=== PATIENT | male | born 1940 | race Hispanic/Latino ===

== ENCOUNTER 2018-05-01 13:50 | Emergency (ER) | payer OTHER ==
--- NOTE | 2018-05-01 14:43 | RAD REPORT ---
EXAM DESCRIPTION: CT - Head C Spine Mpr Wo Con - 05/01/2018 2:25 pm CLINICAL HISTORY: Head and neck injury status post fall. Head and neck pain. Dizziness. COMPARISON: None. TECHNIQUE: Computed axial tomography of the head and cervical spine was obtained. Sagittal and coronal reconstruction was performed. All CT scans are performed using dose optimization technique as appropriate and may include automated exposure control or mA/KV adjustment according to patient size. FINDINGS: An intracranial bleed is not seen. The ventricles are normal in caliber. An extra-axial fl uid collection is not noted. 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 No dislocation is noted. 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 A cervical fracture is not visualized. If the patient continues to have symptoms to suggest intracra nial /spinal cord pathology then MRI would be recommended
--- NOTE | 2018-05-01 15:08 | RAD REPORT ---
EXAM DESCRIPTION: RAD - Foot Left 3 View - 05/01/2018 2:53 pm CLINICAL HISTORY: Left Foot pain status post fall FINDINGS: A mildly displaced fracture involves the proximal to mid aspect of the first distal phalan x. No dislocation is seen
--- NOTE | 2018-05-01 15:22 | RAD REPORT ---
EXAM DESCRIPTION: RAD - Hip Left 2 View - 05/01/2018 2:53 pm CLINICAL HISTORY: Left hip pain status post injury FINDINGS: No fracture or dislocation is seen. The bones are osteoporotic. If the patient continues have symptoms to suggest an occult fracture then MRI would be recommended
[2018-05-01 15:26] LABS: Absolute Lymphocytes (CBC) 1.3 K/uL (0.7-4.9); Absolute Monocytes 0.7 K/uL (0.1-1.3); Absolute Neutrophil 5.4 K/uL (1.8-8.0); Basophils % 0.7 % (0-1.3); Eosinophils % 1.5 % (0-4.4); Hematocrit 36.1 % (39.6-49.0); Lymphocytes % 16.8 % (15.3-44.8); MCH 29.6 pg (27.0-35.0); Monocytes % 9.2 % (3.3-12.3); RBC Red Blood Cell Count 4.01 M/uL (4.33-5.43)
[2018-05-01 15:42] LABS: BUN Blood Urea Nitrogen 17 mg/dL (7-18); Bicarbonate 26 mmol/L (21-32); Glucose Level 97 mg/dL (74-106); Sodium Level 140 mmol/L (136-145)
[2018-05-01] MEDS ORDERED: ONDANSETRON 4 MG/2 ML VIAL ONE (15:53)
[2018-05-01] MEDS ORDERED: HYDROCODONE/APAP 7.5/325 MG TAB ONE (15:53)
[2018-05-01] MEDS ORDERED: NA CHLORIDE 0.9% 1,000 ML ONE (15:53)
[2018-05-01 16:35] LABS: Urine Blood NEGATIVE (NEG); Urine Glucose NEGATIVE (NEG); Urine Protein NEGATIVE (NEG); Urine pH 5.5 (5.0-7.0)
--- NOTE | 2018-05-01 16:52 | EDPHYS ---
Physician Documentation [facility] Name: Perry Osorio Age: 78 yrs Sex: Male : 1940 Arrival Date: 05/01/2018 Time: 13:54 Bed 24 Private MD: out of town, doctor ED Physician Atif Smith HPI: 05/01 14:04 This 78 yrs old Male presents to ER via Wheelchair with complaints of Fall kav Injury. 14:15 Details of fall: The patient fell from an upright position, while walking. Onset: The kav symptoms/episode began/occurred acutely, last night. Associated injuries: The patient sustained injury to the head, neck injury, decreased range of motion, pain, pain with movement, left hip, painful injury, left quadriceps, painful injury. Historical: - Allergies: 14:00 Sulfa (Sulfonamide Antibiotics); lk1 14:00 Ketamine; lk1 - PMHx: 14:00 High Cholesterol; Hypertension; Diabetes - NIDDM; Myocardial infarction; lk1 - PSHx: 14:00 Appendectomy; Cholecystectomy; CABG; lk1 - Immunization history: Last tetanus immunization: - up to date. - Social history:: Smoking status: Patient uses tobacco products, smokes one-half pack cigarettes per day. - Ebola Screening: : No symptoms or risks identified at this time. - Family history:: not pertinent. - Hospitalizations: : No recent hospitalization is reported. - History obtained from: , daughter. ROS: 14:15 Constitutional: Negative for fever, chills, and weight loss, Eyes: Negative for injury, kav pain, redness, and discharge, ENT: Negative for injury, pain, and discharge, Neck: Negative for injury, pain, and swelling, Cardiovascular: Negative for chest pain, palpitations, and edema, Respiratory: Negative for shortness of breath, cough, wheezing, and pleuritic chest pain, Abdomen/GI: Negative for abdominal pain, nausea, vomiting, diarrhea, and constipation, Back: Negative for injury and pain, : Negative for injury, bleeding, discharge, and swelling, Skin: Negative for injury, rash, and discoloration, Psych: Negative for depression, anxiety, suicide ideation, homicidal ideation, and hallucinations, Allergy/Immunology: Negative for hives, rash, and allergies, Endocrine: Negative for neck swelling, polydipsia, polyuria, polyphagia, and marked weight changes, Hematologic/Lymphatic: Negative for swollen nodes, abnormal bleeding, and unusual bruising. 14:15 MS/extremity: Positive for pain, tenderness, of the pelvis and left hip, left femur. 14:15 Neuro: Positive for dizziness, headache, loss of consciousness. Exam: 14:15 Constitutional: This is a well developed, well nourished patient who is awake, alert, kav and in no acute distress. Eyes: Pupils equal round and reactive to light, extra-ocular motions intact. Lids and lashes normal. Conjunctiva and sclera are non-icteric and not injected. Cornea within normal limits. Periorbital areas with no swelling, redness, or edema. ENT: Nares patent. No nasal discharge, no septal abnormalities noted. Tympanic membranes are normal and external auditory canals are clear. Oropharynx with no redness, swelling, or masses, exudates, or evidence of obstruction, uvula midline. Mucous membranes moist. Neck: Trachea midline, no thyromegaly or masses palpated, and no cervical lymphadenopathy. Supple, full range of motion without nuchal rigidity, or vertebral point tenderness. No Meningismus. Chest/axilla: Normal chest wall appearance and motion. Nontender with no deformity. No lesions are appreciated. Cardiovascular: Regular rate and rhythm with a normal S1 and S2. No gallops, murmurs, or rubs. Normal PMI, no JVD. No pulse deficits. Respiratory: Lungs have equal breath sounds bilaterally, clear to auscultation and percussion. No rales, rhonchi or wheezes noted. No increased work of breathing, no retractions or nasal flaring. Abdomen/GI: Soft, non-tender, with normal bowel sounds. No distension or tympany. No guarding or rebound. No evidence of tenderness throughout. Back: No spinal tenderness. No costovertebral tenderness. Full range of motion. Skin: Warm, dry with normal turgor. Normal color with no rashes, no lesions, and no evidence of cellulitis. Neuro: Awake and alert, GCS 15, oriented to person, place, time, and situation. Cranial nerves II-XII grossly intact. Motor strength 5/5 in all extremities. Sensory grossly intact. Cerebellar exam normal. Normal gait. Psych: Awake, alert, with orientation to person, place and time. Behavior, mood, and affect are within normal limits. 14:15 Musculoskeletal/extremity: Extremities: grossly normal except: noted in the left hip: pain, noted in the left quadriceps: pain, ROM: limited active range of motion, in the left quadriceps and pelvis, limited passive range of motion, in the left hip. 14:15 Neuro: Exam negative for acute changes, focal neuro deficits, motor deficits, sensory deficits, cerebellar deficits, altered mental status, confusion, cranial nerve deficits, disorientation. Vital Signs: 14:01 BP 96 / 59; Pulse 93; Resp 15; Temp 97.0(TE); Pulse Ox 95% ; Weight 74.84 kg (R); lk1 Height 5 ft. 9 in. (175.26 cm) (R); Pain 6/10; 14:50 BP 120 / 62; Pulse 88; Resp 18; Pulse Ox 99% ; tl3 17:39 BP 131 / 73; Pulse 66; Resp 18; Pulse Ox 100% ; tl3 14:01 Body Mass Index 24.37 (74.84 kg, 175.26 cm) lk1 NIH Stroke Scale Scores: 14:21 NIHSS Score: 0 kav Marsha Coma Score: 14:01 Eye Response: spontaneous(4). Verbal Response: oriented(5). Motor Response: obeys lk1 commands(6). Total: 15. 14:21 Eye Response: spontaneous(4). Verbal Response: oriented(5). Motor Response: obeys kav commands(6). Total: 15. Trauma Score (Adult): 14:01 Eye Response: spontaneous(1); Verbal Response: oriented(1); Motor Response: obeys lk1 commands(2); Systolic BP: > 89 mm Hg(4); Respiratory Rate: 10 to 29 per min(4); Marsha Score: 15; Trauma Score: 12 14:21 Eye Response: spontaneous(1); Verbal Response: oriented(1); Motor Response: obeys kav commands(2); Systolic BP: > 89 mm Hg(4); Respiratory Rate: 10 to 29 per min(4); [place] Score: 15; Trauma Score: 12 MDM: 14:12 Medical screening is not applicable. kav 16:52 Data reviewed: vital signs, nurses notes, lab test result(s), EKG, radiologic studies, kav CT scan, plain films. 05/01 14:14 Order name: Basic Metabolic Panel; Complete Time: 15:47 [facility] 05/01 15:47 Interpretation: Within normal limits. 05/01 14:14 Order name: CBC with Diff; Complete Time: 15:33 [facility] 05/01 15:33 Interpretation: Normal except: RBC 4.01; HGB 11.9; HCT 36.1. [facility] 05/01 14:14 Order name: CT Head C Spine; Complete Time: 15:20 [facility] 05/01 14:14 Order name: Creatinine for Radiology; Complete Time: 15:47 05/01 14:14 Order name: Type And Screen; Complete Time: 16:50 [facility] 05/01 16:04 Order name: Urine Dipstick--Ancillary (enter results); Complete Time: 16:50 05/01 16:50 Interpretation: Within normal limits. [facility] 05/01 14:14 Order name: Labs collected and sent; Complete Time: 15:19 [facility] 05/01 14:14 Order name: Urine Dipstick-Ancillary (obtain specimen); Complete Time: 15:49 05/01 14:14 Order name: Hip Left 2 View XRAY; Complete Time: 15:33 [facility] 05/01 14:29 Order name: Foot Left 3 View XRAY; Complete Time: 15:16 05/01 15:19 Interpretation: Abnormal: Mildly displaced fx first distal phalanx. kav Administered Medications: 16:01 Drug: Zofran 4 mg Route: IVP; Site: right antecubital; tl3 17:40 Follow up: Response: No adverse reaction tl3 16:01 Drug: [place] (7.5 mg-325 mg) 1 tabs Route: PO; tl3 17:40 Follow up: Response: No adverse reaction; Pain is decreased tl3 16:02 Drug: NS 0.9% 1000 ml Route: IV; Rate: 1000 ml; Site: right antecubital; Delivery: tl3 Primary tubing; 17:40 Follow up: IV Status: Completed infusion; IV Intake: 1000ml tl3 Disposition: 05/01/18 16:50 Discharged to Home. Impression: Displaced fracture of distal phalanx of left great toe, Hypotension due to drugs, Prescription Medication Interaction (Merbytric \T\ Metoprolol) Causing Hypotension. - Condition is Stable. - Discharge Instructions: Toe Fracture, [id number], Syncope, [id number], Hypotension, [id number]. - Medication Reconciliation Form, Thank You Letter, Antibiotic Education, Prescription Opioid Use form. - Follow up: Private Physician; When: 7 - 10 days; Reason: Recheck today's complaints, Continuance of care, Re-evaluation by your physician. - Problem is new. - Symptoms have improved. - Notes: Do not take Metoprolol and Myrbetriq together. The combination of these two medications my increase metoprolol levels risk of hypotension, bradycardia, AV block Please discuss the combinatio of these medications with your PCP and Urologist NIH Stroke Scale - NIH Stroke Score Date: 05/01/2018 Time: 14:21 Total Score = 0 1a. Level of Consciousness (LOC) - 0(Alert) 1b. Level of Consciousness (LOC) (Year \T\ Age) - 0(Both) 1c. LOC Commands (Open \T\ Closes Eyes/Bonding Machine Operator) - 0(Both) 2. Best Gaze (Lateral Gaze Paresis) - 0(Normal) 3. Visual Field Loss - 0(No visual loss) 4. Facial Palsy - 0(Normal) 5a. Left Arm: Motor (10-second hold) - 0(No drift) 5b. Right Arm: Motor (10-second hold) - 0(No drift) 6a. Left Leg: Motor (5-second hold - always test supine) - 0(No drift) 6b. Right Leg: Motor (5-second hold - always test supine) - 0(No drift) 7. Limb Ataxia (finger/nose \T\ heel/hollins - test with eyes open) - 0(Absent) 8. Sensory Loss (pinprick arms/legs/face) - 0(Normal) 9. Best Language: Aphasia (description/naming/reading) - 0(No aphasia) 10. Dysarthria (speech clarity - read or repeat words) - 0(Normal) 11. Extinction and Inattention (visual/tactile/auditory/spatial/personal) - 0(No abnormality) Initials: sai Addendum: 05/08/2018 11:26 Co-signature as Attending Physician, Atif Smith MD I agree with the kdr assessment and plan of care. Signatures: Dispatcher [employer] EDUT Atif Smith MD MD kdr Juarez, Starr, HOTEL SUPERINTENDENT HOTEL SUPERINTENDENT ka Estelita Khan, RN RN lk1 Kenia Pierson, RN RN tl3 Corrections: (The following items were deleted from the chart) 05/01 15:20 15:20 No acute disease. kav kav 15:34 15:33 No acute disease. kav kav 16:01 15:47 Within normal limits. kav kav 16:50 16:50 Within normal limits. kav kav 17:42 16:50 05/01/2018 16:50 Discharged to Home. Impression: Displaced fracture of tl3 distal phalanx of left great toe; Hypotension due to drugs; Prescription Medication Interaction (Merbytric \T\ Metoprolol) Causing Hypotension. Condition is Stable. Discharge Instructions: Toe Fracture, Usxp-oa-[id number], Syncope, Hvvd-zk-[id number], Hypotension, Miml-ma-Dune. Forms are Medication Reconciliation Form, Thank You Letter, Antibiotic Education, Prescription Opioid Use. Follow up: Private Physician; When: 7 - 10 days; Reason: Recheck today's complaints, Continuance of care, Re-evaluation by your physician. Problem is new. Symptoms have improved. kav
--- NOTE | 2018-05-01 16:52 | ER ---
Nurse's Notes [facility] Name: Perry Osorio Age: 78 yrs Sex: Male : 1940 Arrival Date: 05/01/2018 Time: 13:54 Bed 24 Private MD: out of town, doctor Diagnosis: Displaced fracture of distal phalanx of left great toe;Hypotension due to drugs;Prescription Medication Interaction (Merbytric \\T\\ Metoprolol) Causing Hypotension Presentation: 05/01 13:56 Presenting complaint: Patient states: "I fell down this morning, I don't know how, but lk1 I hit my head and I think I broke my toe on the left foot. I have been getting dizzy.". Care prior to arrival: None. Mechanism of Injury: Fall. Trauma event details: Injury occurred in the [facility], Injury occurred: at home. Injury occurred: May 01, 2018 Injury occurred at: 08:00. 13:56 Acuity: MARCELO 3 lk1 13:56 Method Of Arrival: Wheelchair lk1 17:41 Transition of care: patient was not received from another setting of care. Onset of tl3 symptoms was May 01, 2018 at 03:00. Risk Assessment: Do you want to hurt yourself or someone else? Patient reports no desire to harm self or others. Initial Sepsis Screen: Does the patient meet any 2 criteria? No. Patient's initial sepsis screen is negative. Does the patient have a suspected source of infection? No. Patient's initial sepsis screen is negative. Trauma Activation: Not Applicable Physician: ED Physician; Name: ; Notified At: ; Arrived At: Physician: General Surgeon; Name: ; Notified At: ; Arrived At: Physician: Radiology; Name: ; Notified At: ; Arrived At: Physician: Respiratory; Name: ; Notified At: ; Arrived At: Physician: Lab; Name: ; Notified At: ; Arrived At: Historical: - Allergies: 14:00 Sulfa (Sulfonamide Antibiotics); lk1 14:00 Ketamine; lk1 - PMHx: 14:00 High Cholesterol; Hypertension; Diabetes - NIDDM; Myocardial infarction; lk1 - PSHx: 14:00 Appendectomy; Cholecystectomy; CABG; lk1 - Immunization history: Last tetanus immunization: - up to date. - Social history:: Smoking status: Patient uses tobacco products, smokes one-half pack cigarettes per day. - Ebola Screening: : No symptoms or risks identified at this time. - Family history:: not pertinent. - Hospitalizations: : No recent hospitalization is reported. - History obtained from: , daughter. Screenin:50 Abuse screen: Denies threats or abuse. Nutritional screening: No deficits noted. tl3 Tuberculosis screening: No symptoms or risk factors identified. Fall Risk Fall in past 12 months (25 points). Primary Survey: 14:00 A: Airway: patent. Breathing/Chest: Respiratory pattern: regular, Respiratory effort: lk1 spontaneous, Chest inspection: symmetrical rise and fall of the chest. Circulation: Heart tones present. Pulses: palpable right brachial artery, right dorsalis pedis artery, left brachial artery and left dorsalis pedis artery. Disability Alert. Assessment: 14:50 General: Appears in no apparent distress. comfortable, slender, well groomed, well tl3 developed, Behavior is calm, cooperative, appropriate for age. Pain: Complains of pain in left leg and left quadriceps and pelvis and left hip and left dorsalis pedis artery and left brachial artery and right dorsalis pedis artery and right brachial artery. 15:30 Reassessment: Patient appears in no apparent distress at this time. No changes from tl3 previously documented assessment. Patient and/or family updated on plan of care and expected duration. Pain level reassessed. Patient is alert, oriented x 3, equal unlabored respirations, skin warm/dry/pink. 17:39 Reassessment: Patient appears in no apparent distress at this time. No changes from tl3 previously documented assessment. Patient and/or family updated on plan of care and expected duration. Pain level reassessed. Patient is alert, oriented x 3, equal unlabored respirations, skin warm/dry/pink. Vital Signs: 14:01 BP 96 / 59; Pulse 93; Resp 15; Temp 97.0(TE); Pulse Ox 95% ; Weight 74.84 kg (R); lk1 Height 5 ft. 9 in. (175.26 cm) (R); Pain 6/10; 14:50 BP 120 / 62; Pulse 88; Resp 18; Pulse Ox 99% ; tl3 17:39 BP 131 / 73; Pulse 66; Resp 18; Pulse Ox 100% ; tl3 14:01 Body Mass Index 24.37 (74.84 kg, 175.26 cm) lk1 [place] Coma Score: 14:01 Eye Response: spontaneous(4). Verbal Response: oriented(5). Motor Response: obeys lk1 commands(6). Total: 15. 14:21 Eye Response: spontaneous(4). Verbal Response: oriented(5). Motor Response: obeys kav commands(6). Total: 15. Trauma Score (Adult): 14:01 Eye Response: spontaneous(1); Verbal Response: oriented(1); Motor Response: obeys lk1 commands(2); Systolic BP: > 89 mm Hg(4); Respiratory Rate: 10 to 29 per min(4); Marsha Score: 15; Trauma Score: 12 14:21 Eye Response: spontaneous(1); Verbal Response: oriented(1); Motor Response: obeys kav commands(2); Systolic BP: > 89 mm Hg(4); Respiratory Rate: 10 to 29 per min(4); [place] Score: 15; Trauma Score: 12 NIH Stroke Scale Scores: 14:21 NIHSS Score: 0 kav ED Course: 13:54 Patient arrived in ED. mr 13:55 out of town, doctor is Private Physician. mr 13:59 Triage completed. lk1 14:04 [facility] kav 14:04 Atif Smith MD is Attending Physician. kav 14:04 Arm band placed on right wrist. lk1 14:25 CT Head C Spine In Process Unspecified. EDMS 14:26 CT completed. Patient tolerated procedure well. Patient moved to radiology Patient sj moved back from CT. 14:49 Kenia Pierson, RN is Primary Nurse. tl3 14:50 Patient has correct armband on for positive identification. Bed in low position. Call tl3 light in reach. Side rails up X2. Adult w/ patient. Pulse ox on. NIBP on. 14:50 No provider procedures requiring assistance completed. tl3 14:53 Hip Left 2 View XRAY In Process Unspecified. EDMS 14:53 Foot Left 3 View XRAY In Process Unspecified. EDMS 15:18 Initial lab(s) drawn, by me, sent to lab. T\\T\\S collected, blood band applied to patient. dh3 Inserted saline lock: 22 gauge in right antecubital area, using aseptic technique. Blood collected. 15:49 Urine collected: urinal, clear. dh3 17:39 IV discontinued, intact, bleeding controlled, No redness/swelling at site. Pressure tl3 dressing applied. Administered Medications: 16:01 Drug: Zofran 4 mg Route: IVP; Site: right antecubital; tl3 17:40 Follow up: Response: No adverse reaction tl3 16:01 Drug: [place] (7.5 mg-325 mg) 1 tabs Route: PO; tl3 17:40 Follow up: Response: No adverse reaction; Pain is decreased tl3 16:02 Drug: NS 0.9% 1000 ml Route: IV; Rate: 1000 ml; Site: right antecubital; Delivery: tl3 Primary tubing; 17:40 Follow up: IV Status: Completed infusion; IV Intake: 1000ml tl3 Intake: 14:01 PO: 0ml; Total: 0ml. lk1 17:40 IV: 1000ml; Total: 1000ml. tl3 Output: 14:01 Urine: 0ml; Total: 0ml. lk1 Outcome: 16:50 Discharge ordered by MD. gibbs 17:39 Discharged to home ambulatory. tl3 17:39 Condition: stable 17:39 Discharge instructions given to patient, family, Instructed on discharge instructions, follow up and referral plans. medication usage, Demonstrated understanding of instructions, follow-up care, medications. 17:42 Patient left the ED. tl3 NIH Stroke Scale - NIH Stroke Score Date: 05/01/2018 Time: 14:21 Total Score = 0 1a. Level of Consciousness (LOC) - 0(Alert) 1b. Level of Consciousness (LOC) (Year \\T\\ Age) - 0(Both) 1c. LOC Commands (Open \\T\\ Closes Eyes/Food Aide) - 0(Both) 2. Best Gaze (Lateral Gaze Paresis) - 0(Normal) 3. Visual Field Loss - 0(No visual loss) 4. Facial Palsy - 0(Normal) 5a. Left Arm: Motor (10-second hold) - 0(No drift) 5b. Right Arm: Motor (10-second hold) - 0(No drift) 6a. Left Leg: Motor (5-second hold - always test supine) - 0(No drift) 6b. Right Leg: Motor (5-second hold - always test supine) - 0(No drift) 7. Limb Ataxia (finger/nose \\T\\ heel/hollins - test with eyes open) - 0(Absent) 8. Sensory Loss (pinprick arms/legs/face) - 0(Normal) 9. Best Language: Aphasia (description/naming/reading) - 0(No aphasia) 10. Dysarthria (speech clarity - read or repeat words) - 0(Normal) 11. Extinction and Inattention (visual/tactile/auditory/spatial/personal) - 0(No abnormality) Initials: sai Signatures: Dispatcher [employer] EDMS Starr Pizarro, INSTRUCTIONAL SPECIALIST INSTRUCTIONAL SPECIALIST Dinora Mckeon mr Dean, LandyEstelita Hodges, RN RN lk1 Emilie Hyatt 3 Kenia Pierson, RN RN tl3
== END 2018-05-01 17:42 | disposition home or self-care (01) ==
LOC: ER 13:50
DX: S92.422A Displaced fracture of distal phalanx of left great toe, initial encounter for closed fracture (principal); W18.39XA Other fall on same level, initial encounter; Y93.01 Activity, walking, marching and hiking; Y92.9 Unspecified place or not applicable; I95.2 Hypotension due to drugs; T50.995A Adverse effect of other drugs, medicaments and biological substances, initial encounter; I10 Essential (primary) hypertension; I25.2 Old myocardial infarction; F17.210 Nicotine dependence, cigarettes, uncomplicated; Z95.1 Presence of aortocoronary bypass graft; Z88.2 Allergy status to sulfonamides; Z88.8 Allergy status to other drugs, medicaments and biological substances
CPT/HCPCS: 36415; 70450; 72125; 73502; 73630; 80048; 81003; 85025; 86850; 86900; 86901; 96361; 96374; 99284; J2405; J7030

== ENCOUNTER 2022-12-03 15:33 | Inpatient (IN) | payer OTHER ==
--- OUTSIDE RECORDS SUMMARY | 2022-12-03 15:54 | XMS REPORT | Continuity of Care Document ---
:1940 Author Organization [facility] t Address [address] [place] [address] Care Team Providers Name Role Phone Asked, No Pcp Primary Care Physician Unavailable Mak Luna Attending Clinician Gilbert Murillo Attending Clinician Gilbert Murillo Admitting Clinician Problems Condition Condition Condition Status Onset Resolution Last Treating Co mments Source Name Details Category Date Date Treatment Clinician Date [id number] Bilateral Problem Com mon hand Spirit numbness - [facility] [id number] Primary Problem Commo n osteoarthr Spirit [id number] Dupuytren' Problem C ommon [id number] s Spirit contractur - [facility] e of both [facility] Dysphagia, Dysphagia Problem 2018-08-27 Memoria unspecifie , 04:01:04 l d unspecifie Serafin n d 08/27/2018 [facility] Allergies, Adverse Reactions, Alerts Allergy Allergy Status Severity Reaction(s) Onset Inactive Treating Comm ents Source Name Type Date Date Clinician ketamine ketamine Active Unknown Commo n Spirit - [facility] Sulfona Sulfona Active Unknown Commo n mide mide Spirit (substan (substan - [facility] ce) ce) [facility] Social History Social Habit Start Date Stop Date Quantity Comments Source History of Tobacco [facility] - [facility] Use [facility] Sex Assigned At [birth year] [facility] 00:00:00 00:00:00 Smoking Status Start Date Stop Date Source Tobacco smoking consumption [facility] unknown Never Smoker [facility] Medications Ordered Filled Start Stop Current Ordering Indication Dosage Frequency Signature Comments Components Source Medication Medication Date Date Medication? Clinician (SIG) Name Name Imodium A-D Imodium A-D No Imodium A-D Vitamin B Vitamin B No Vitamin B 10 15 12 guaiFENesin guaiFENesin No guaiFENesi n Melatonin Melatonin No Melatonin Plavix Plavix No Plavix Tylenol Tylenol No Tylenol Timoptic Timoptic No Timoptic Lipitor Lipitor No Lipitor Gabapentin Gabapentin No Gabapentin Protonix Protonix No Protonix Furosemide Furosemide No Furosemide MiraLax MiraLax No MiraLax Potassium Potassium No Potassium Toprol XL Toprol XL No Toprol XL Alfuzosin Alfuzosin No Alfuzosin HCl HCl HCl traZODone traZODone No traZODone HCl HCl HCl Ipratropium Ipratropium No Ipratropiu [place] Levothyroxi Levothyroxi No Levothyrox ne Sodium ne Sodium ine Sodium Vitamin A&D Vitamin A&D No Vitamin A&D metFORMIN metFORMIN No metFORMIN HCl HCl HCl Imodium A-D Imodium A-D No Imodium A-D Vitamin B Vitamin B No Vitamin B 10 15 12 guaiFENesin guaiFENesin No guaiFENesi n Melatonin Melatonin No Melatonin Plavix Plavix No Plavix Tylenol Tylenol No Tylenol Timoptic Timoptic No Timoptic Lipitor Lipitor No Lipitor Gabapentin Gabapentin No Gabapentin Protonix Protonix No Protonix Furosemide Furosemide No Furosemide MiraLax MiraLax No MiraLax Potassium Potassium No Potassium Toprol XL Toprol XL No Toprol XL Alfuzosin Alfuzosin No Alfuzosin HCl HCl HCl traZODone traZODone No traZODone HCl HCl HCl Ipratropium Ipratropium No Ipratropiu [place] Levothyroxi Levothyroxi No Levothyrox ne Sodium ne Sodium ine Sodium Vitamin A&D Vitamin A&D No Vitamin A&D metFORMIN metFORMIN No metFORMIN HCl HCl HCl Imodium A-D Imodium A-D No Imodium A-D Vitamin B Vitamin B No Vitamin B 12 12 12 guaiFENesin guaiFENesin No guaiFENesi n Melatonin Melatonin No Melatonin Plavix Plavix No Plavix Tylenol Tylenol No Tylenol Timoptic Timoptic No Timoptic Lipitor Lipitor No Lipitor Gabapentin Gabapentin No Gabapentin Protonix Protonix No Protonix Furosemide Furosemide No Furosemide MiraLax MiraLax No MiraLax Potassium Potassium No Potassium Toprol XL Toprol XL No Toprol XL Alfuzosin Alfuzosin No Alfuzosin HCl HCl HCl traZODone traZODone No traZODone HCl HCl HCl Ipratropium Ipratropium No Ipratropiu [place] Levothyroxi Levothyroxi No Levothyrox ne Sodium ne Sodium ine Sodium Vitamin A&D Vitamin A&D No Vitamin A&D metFORMIN metFORMIN No metFORMIN HCl HCl HCl Vital Signs Vital Name Observation Time Observation Value Comments Source height 2022-08-08 10:30:00 69 [in_i] [facility] weight 2022-08-08 10:30:00 160 [lb_av] [facility] temperature 2022-08-08 10:30:00 98.1 [degF] [facility] bmi 2022-08-08 10:30:00 23.63 kg/m2 [facility] blood pressure 2022-08-08 10:30:00 130 mm[Hg] [facility] - systolic [facility] blood pressure 2022-08-08 10:30:00 78 mm[Hg] [facility] - diastolic [facility] Procedures This patient has no known procedures. Plan of Care Planned Activity Planned Date Details Comments Source Future Scheduled 2022-10-17 COVID-19 VACCINE (#1) [facility] Test 19:39:25 [code = COVID-19 VACCINE (#1)] Future Scheduled 2022-10-17 SHINGLES VACCINES (1 Met [facility] Test 19:39:25 of 2) [code = SHINGLES VACCINES (1 of 2)] Future Scheduled 2022-10-17 65+ PNEUMOCOCCAL [facility] Test 19:39:25 VACCINE (1 - PCV) [code = 65+ PNEUMOCOCCAL VACCINE (1 - PCV)] Future Scheduled 2022-10-17 INFLUENZA VACCINE Method [facility] Test 19:39:25 [code = INFLUENZA VACCINE] Future Scheduled 2022-08-08 SHINGLES VACCINES (1 Met [facility] Test 13:33:05 of 2) [code = SHINGLES VACCINES (1 of 2)] Future Scheduled 2022-08-08 65+ [facility]OCOCCAL [facility] Test 13:33:05 VACCINE (1 - PCV) [code = 65+ PNEUMOCOCCAL VACCINE (1 - PCV)] Future Scheduled 2022-08-[address]ZA VACC[address] Method [facility] Test 13:33:05 [code = INFLUENZA VACCINE] Future Scheduled 2022-08-08 HEPATITIS B VACCINES Met [facility] Test 13:33:05 (1 of 3 - 3-dose series) [code = HEPATITIS B VACCINES (1 of 3 - 3-dose series)] Future Scheduled 2022-08-08 COVID-19 VACCINE (#1) [facility] Test 13:33:05 [code = COVID-19 VACCINE (#1)] Future Scheduled 2022-08-08 SHINGLES VACCINES (1 Met [facility] Test 13:33:05 of 2) [code = SHINGLES VACCINES (1 of 2)] Future Scheduled 2022-08-08 65+ P[facility]UMOCOCCAL [facility] Test 13:33:05 VACCINE (1 - PCV) [code = 65+ PNEUMOCOCCAL VACCINE (1 - PCV)] Future Scheduled 2022-08-[address]ENZA VACCINE Method [facility] Test 13:33:05 [code = INFLUENZA VACCINE] Future Scheduled 2022-08-08 HEPATITIS B VACCINES Met [facility] Test 13:33:05 (1 of 3 - 3-dose series) [code = HEPATITIS B VACCINES (1 of 3 - 3-dose series)] Future Scheduled 2022-08-08 COVID-19 VACCINE (#1) [facility] Test 13:33:05 [code = COVID-19 VACCINE (#1)] Encounters Start End Encounter Admission Attending Care Care Encounter Source Date/Time Date/Time Type Type Clinicians Facility Department ID 2022-08-08 Outpatient [facility] [id number] Common 10:35:03 [id number] [facility] 2022-12-11 2022-12-11 Outpatient [place] [id number] Memoria 08:15:00 08:15:00 02 yeny Rodriges 2022-11-01 2022-11-01 Ambulatory [facility] [id number] Memoria 14:15:00 14:15:00 Pre-Reg Neurology 01 yeny Turcios [place] 2022-11-01 2022-11-01 Outpatient Enochnate AMALIAKYSCHER MHMISCHER [id number] 08:15:00 08:15:00 Mak Sabas 2022-09-24 2022-09-24 Ambulatory [facility] MNA [id number] Memoria 16:30:00 16:30:00 Pre-Reg Neurology 00 yeny Turcios [place] 2022-09-24 2022-09-24 Outpatient [facility]IE [facility]IE [id number] Memoria 10:30:00 10:30:00 00 yeny Antelmo 2022-09-24 2022-09-24 Outpatient [facility]IE [id number] Memoria 10:30:00 10:30:00 01 yeny [place] 2022-09-24 2022-09-24 [id number] 10:30:00 10:30:00 Mak 00 [facility] 2022-08-13 2022-08-13 (TEL) STLMLC STLMLC [id number] Co mmon 00:00:00 00:00:00 [facility] 2022-08-13 2022-08-13 (TEL) STLMLC STLMLC [id number] Co mmon 00:00:00 00:00:00 [facility] 2022-08-08 2022-08-08 OFFICE STLMLC STLMLC [id number] Co mmon 00:00:00 00:00:00 VISIT NEW Spir it PT LEVEL 3 - [facility] 2018-08-25 2018-08-26 Outpatient nullFlavo [facility] [id number] Memoria 12:48:25 04:59:[address] [facility] 2018-08-25 2018-08-25 Outpatient nullFlavo [facility] [id number] Memoria 07:48:25 23:59:59 brisa Rodriges 2018-08-25 2018-08-25 Outpatient [facility], [id number] 07:48:25 23:59:59 Gilbert Jennings 8 Results This patient has no known results.
[2022-12-03 16:30] LABS: Absolute Lymphocytes (CBC) 1.1 K/uL (0.7-4.9); Hematocrit 36.9 % (39.6-49.0); Lymphocytes % 10.9 % (15.3-44.8); MCV 78.8 fL (80-100); RBC Red Blood Cell Count 4.68 M/uL (4.33-5.43)
[2022-12-03 16:34] LABS: Protime INR 1.19
--- NOTE | 2022-12-03 16:46 | RAD REPORT ---
EXAM DESCRIPTION: Merari Single View12/03/2022 4:41 pm CLINICAL HISTORY: Cough COMPARISON: none FINDINGS: Mild bilateral patchy lung opacities Elevation right hemidiaphragm. Heart is normal size. Postsurgical changes involve the chest IMPRESSION: Mild bilateral patchy lung opacities probably pneumonia
[2022-12-03 16:49] LABS: Albumin 2.8 g/dL (3.4-5.0); Bilirubin Total 0.4 mg/dL (0.2-1.0); Protein, Total 7.4 g/dL (6.4-8.2)
[2022-12-03 17:07] LABS: SARS-COV-2 RT PCR NEGATIVE (NEGATIVE)
--- NOTE | 2022-12-03 17:07 | EDPHYS ---
Physician Documentation [facility] Name: Perry Osorio Age: 82 yrs Sex: Male : 1940 Arrival Date: 12/03/2022 Time: 15:41 Bed 5 Private MD: ED Physician Marcelo Mantilla HPI: 12/03 15:52 This 82 yrs old Male presents to ER via EMS with complaints of Cough. rn 15:52 The patient or guardian reports cough, described as moderate, with productive sputum, rn difficulty breathing. Onset: The symptoms/episode began/occurred 1 week(s) ago. Severity of symptoms: At their worst the symptoms were moderate, in the emergency department the symptoms are unchanged. Modifying factors: The symptoms are alleviated by nothing, the symptoms are aggravated by nothing. Associated signs and symptoms: Pertinent positives: Pertinent negatives: fever, rhinorrhea, vomiting. The patient has experienced similar episodes in the past. The patient has not recently seen a physician. Pt reports cough, for 1 week, assoc with sob. No fever. Has swallowing problems. . Historical: - Allergies: 19:29 KETAMINE; kl 19:29 Sulfa (Sulfonamide Antibiotics); kl - PMHx: 19:29 Diabetes - NIDDM; High Cholesterol; Hypertension; Myocardial infarction; kl - Immunization history:: Adult Immunizations up to date. - Social history:: Smoking status: Patient denies any tobacco usage or history of. - Family history:: not pertinent. - Hospitalizations: : No recent hospitalization is reported. ROS: 15:52 Constitutional: Negative for fever, chills, and weight loss, Eyes: Negative for injury, rn pain, redness, and discharge, Neck: Negative for injury, pain, and swelling, Cardiovascular: Negative for chest pain, palpitations Respiratory: + cough and sob. Abdomen/GI: Negative for abdominal pain, nausea, vomiting, diarrhea, and constipation, MS/Extremity: Negative for injury and deformity, Skin: Negative for injury, rash, and discoloration, Neuro: Negative for headache, numbness, tingling, and seizure. Exam: 16:03 ECG was reviewed by the Attending Physician. rn 16:12 Constitutional: This is a well developed, well nourished patient who is awake, alert, rn persistent cough and holding emesis bag Head/Face: Normocephalic, atraumatic. ENT: No stridor Cardiovascular: Regular rate and rhythm. No pulse deficits. Respiratory: + coarse bialteral breath sounds, worse on right, no retractions, + mild tachypnea Abdomen/GI: Soft, non-tender Skin: Warm, dry MS/ Extremity: Pulses equal, no cyanosis. Neuro: Awake and alert, GCS 15 Vital Signs: 15:42 BP 173 / 77; Pulse 87; Resp 16; Temp 98.7; Pulse Ox 96% 2 lpm ; bp 16:19 BP 189 / 85; Pulse 93; Resp 20; Pulse Ox 97% on 2 lpm NC; kr3 19:29 BP 141 / 64; Pulse 95; Resp 19 S; Pulse Ox 94% on 2 lpm NC; as6 MDM: 15:42 Patient medically screened. rn 17:04 ED course: Pt with increased sob and agitation, tachypnea worsened, called for Bipap rn for increased work of breathing.. 17:05 Differential Diagnosis: Bronchitis Influenza Upper Respiratory Infection Viral Syndrome rn Pneumonia. Data reviewed: vital signs, nurses notes, lab test result(s), EKG, radiologic studies, plain films, and as a result, I will admit patient. Consideration of Admission/Observation Patient was admitted/placed on observation. Counseling: I had a detailed discussion with the patient and/or guardian regarding: the historical points, exam findings, and any diagnostic results supporting the discharge/admit diagnosis, lab results, radiology results, the need for further work-up and treatment in the hospital. Response to treatment: the patient's symptoms have worsened after treatment, and as a result, I will admit patient. 17:06 ED course: Normal lactate. rn 17:36 ED course: Pt did not tolerate Bipap, refused to keep it on, RT is troubleshooting.. rn 18:06 ED course: Pt with severe sepsis, bilateral pneumonia, multiple SIRS criteria, and need rn for intubation but patient refused. Normal lactate, no need to repeat and no indication for sepsis bolus. . 12/03 15:45 Order name: Blood Culture Adult (2) rn 12/03 15:45 Order name: CBC with Diff; Complete Time: 17:00 rn 12/03 15:45 Order name: CMP; Complete Time: 17: rn 12/03 15:45 Order name: Lactate w/ 2H reflex if indic.; Complete Time: 17:00 rn 12/03 15:45 Order name: Protime (+inr); Complete Time: 17:00 rn 12/03 15:45 Order name: Ptt, Activated; Complete Time: 17:00 rn 12/03 15:45 Order name: Chest Single View XRAY; Complete Time: 17:00 rn 12/03 15:45 Order name: COVID-19/FLU A+B; Complete Time: 17:12 rn 12/03 15:50 Order name: BNP; Complete Time: 17:00 rn 12/03 16:58 Order name: Glucose, Ancillary Testing; Complete Time: 17:00 EDMS 12/03 17:04 Order name: BIPAP rn 12/03 15:45 Order name: EKG; Complete Time: 15:46 rn 12/03 15:45 Order name: Accucheck; Complete Time: 16:56 rn 12/03 15:45 Order name: Cardiac monitoring; Complete Time: 16:05 rn 12/03 15:45 Order name: EKG - Nurse/Tech; Complete Time: 16:04 rn 12/03 15:45 Order name: IV Saline Lock - Large Bore; Complete Time: 16:56 rn 12/03 15:45 Order name: Labs collected and sent; Complete Time: 16:25 rn 12/03 15:45 Order name: O2 Per Protocol; Complete Time: 16:05 rn 12/03 15:45 Order name: O2 Sat Monitoring; Complete Time: 16:05 rn 12/03 15:45 Order name: Vital Signs; Complete Time: 16:05 rn EC:03 Rate is 88 beats/min. Rhythm is regular. QRS Binford is Normal. VT interval is normal. QRS rn interval is normal. QT interval is normal. No Q waves. T waves are Normal. No ST changes noted. Clinical impression: Normal ECG. Interpreted by me. Reviewed by me. Administered Medications: 16:30 Drug: NS 0.9% 250 ml Route: IV; Rate: bolus; Site: right forearm; bp 20:15 Follow up: Response: No adverse reaction; IV Status: Completed infusion; IV Intake: as6 250ml 17:10 Drug: Rocephin (cefTRIAXone) 1 grams Route: IV; Rate: calculated rate; Site: right bp forearm; 20:15 Follow up: Response: No adverse reaction; IV Status: Completed infusion; IV Intake: 72ylby6 17:10 Drug: Zithromax (azithromycin) 500 mg Route: IVPB; Infused Over: 1 hrs; Site: right bp forearm; 20:15 Follow up: Response: No adverse reaction; IV Status: Completed infusion; IV Intake: as6 250ml 17:10 Drug: morphine 2 mg Route: IVP; Infused Over: 4 mins; Site: right forearm; bp 20:15 Follow up: Response: No adverse reaction as6 17:10 Drug: Zofran (Ondansetron) 4 mg Route: IVP; Site: right forearm; bp 20:15 Follow up: Response: No adverse reaction as6 Disposition Summary: 12/03/22 17:06 Hospitalization Ordered Hospitalization Status: Inpatient Admission rn Provider: Feng Cifuentes rn Location: Telemetry/MedSur (Inpatient) rn Condition: Stable rn Problem: new rn Symptoms: have worsened rn Bed/Room Type: Standard rn Room [facility]: [facility](12/03/22 19:07) Diagnosis - Pneumonia, unspecified organism rn - Dyspnea, unspecified rn - Severe sepsis without septic shock rn Forms: - Medication Reconciliation Form rn - SBAR form edge burnisher uppers time excluding procedures: 18:06 Critical care time: Bedside Care: 35 minutes. Total time: 35 minutes rn Signatures: Dispatcher [employer] Shahida Modi, RN Jacqui Calabrese RN RN Marcelo Harrison MD MD rn Peltier, Brian, RN RN bp Slawson, Ashby RN as6 Corrections: (The following items were deleted from the chart) 19:07 17:06 rn martha
--- NOTE | 2022-12-03 17:07 | ER ---
Nurse's Notes [facility] Name: Perry Osorio Age: 82 yrs Sex: Male : 1940 Arrival Date: 12/03/2022 Time: 15:41 Bed 5 Private MD: Diagnosis: Pneumonia, unspecified organism;Dyspnea, unspecified;Severe sepsis without septic shock Presentation: 12/03 15:42 Chief complaint: EMS states: PRODUCTIVE COUGH WITH PNEUMONIA, DX AT CUSTODIAL x1 WK bp AGO. Coronavirus screen: cough unrelated to allergies, difficulty breathing. Ebola Screen: No symptoms or risks identified at this time. Initial Sepsis Screen: Does the patient meet any 2 criteria? No. Patient's initial sepsis screen is negative. Does the patient have a suspected source of infection? Yes:. Risk Assessment: Do you want to hurt yourself or someone else? Patient reports no desire to harm self or others. Onset of symptoms is unknown. 15:42 Method Of Arrival: EMS: [facility] bp 15:42 Acuity: MARCELO 3 bp Triage Assessment: 15:42 General: Appears distressed, Behavior is cooperative, appropriate for age, anxious. bp Pain: Denies pain. EENT: No deficits noted. Neuro: No deficits noted. Cardiovascular: No deficits noted. Respiratory: Reports cough that is Breath sounds with crackles bilaterally. GI: No signs and/or symptoms were reported involving the gastrointestinal system. : No signs and/or symptoms were reported regarding the genitourinary system. Derm: No deficits noted. Musculoskeletal: No deficits noted. Historical: - Allergies: 19:29 KETAMINE; kl 19:29 Sulfa (Sulfonamide Antibiotics); kl - PMHx: 19:29 Diabetes - NIDDM; High Cholesterol; Hypertension; Myocardial infarction; kl - Immunization history:: Adult Immunizations up to date. - Social history:: Smoking status: Patient denies any tobacco usage or history of. - Family history:: not pertinent. - Hospitalizations: : No recent hospitalization is reported. Screenin:45 [facility] ED Fall Risk Assessment (Adult) History of falling in the last 3 months, bp including since admission No falls in past 3 months (0 pts). Abuse screen: Denies threats or abuse. Denies injuries from another. Nutritional screening: No deficits noted. Tuberculosis screening: No symptoms or risk factors identified. Assessment: 15:45 General: SEE TRIAGE NOTE. bp 19:35 General: attempted to call report . as6 Vital Signs: 15:42 BP 173 / 77; Pulse 87; Resp 16; Temp 98.7; Pulse Ox 96% 2 lpm ; bp 16:19 BP 189 / 85; Pulse 93; Resp 20; Pulse Ox 97% on 2 lpm NC; kr3 19:29 BP 141 / 64; Pulse 95; Resp 19 S; Pulse Ox 94% on 2 lpm NC; as6 ED Course: 15:41 Patient arrived in ED. bp 15:42 Marcelo Mantilla MD is Attending Physician. rn 15:42 Arm band placed on. bp 15:44 Triage completed. bp 15:45 Patient has correct armband on for positive identification. Bed in low position. Call bp light in reach. Side rails up X2. 15:46 Donta Strong, RN is Primary Nurse. bp 16:22 Inserted saline lock: 22 gauge in right antecubital area, using aseptic technique. rs5 Blood collected. 16:25 COVID-19/FLU A+B Sent. rs5 16:25 BNP Sent. rs5 16:25 Lactate w/ 2H reflex if indic. Sent. rs5 16:25 Protime (+inr) Sent. rs5 16:25 Ptt, Activated Sent. rs5 16:25 CBC with Diff Sent. rs5 16:25 CMP Sent. rs5 16:43 Chest Single View XRAY In Process Unspecified. EDMS 17:00 Blood Culture Adult (2) Sent. rs5 17:00 COVID-19/FLU A+B Sent. rs5 17:00 Inserted saline lock: 22 gauge in left antecubital area, using aseptic technique. Blood rs5 collected. 17:01 IV discontinued, intact, bleeding controlled, No redness/swelling at site. Pressure rs5 dressing applied. 17:06 Feng Cifuentes is Hospitalizing Provider. rn 19:30 No provider procedures requiring assistance completed. as6 19:30 Patient admitted, IV remains in place. as6 Administered Medications: 16:30 Drug: NS 0.9% 250 ml Route: IV; Rate: bolus; Site: right forearm; bp 20:15 Follow up: Response: No adverse reaction; IV Status: Completed infusion; IV Intake: as6 250ml 17:10 Drug: Rocephin (cefTRIAXone) 1 grams Route: IV; Rate: calculated rate; Site: right bp forearm; 20:15 Follow up: Response: No adverse reaction; IV Status: Completed infusion; IV Intake: 83gycl6 17:10 Drug: Zithromax (azithromycin) 500 mg Route: IVPB; Infused Over: 1 hrs; Site: right bp forearm; 20:15 Follow up: Response: No adverse reaction; IV Status: Completed infusion; IV Intake: as6 250ml 17:10 Drug: morphine 2 mg Route: IVP; Infused Over: 4 mins; Site: right forearm; bp 20:15 Follow up: Response: No adverse reaction as6 17:10 Drug: Zofran (Ondansetron) 4 mg Route: IVP; Site: right forearm; bp 20:15 Follow up: Response: No adverse reaction as6 Medication: 15:45 VIS not applicable for this client. bp Intake: 20:15 IV: 250ml; Total: 250ml. as6 20:15 IV: 50ml; Total: 300ml. as6 20:15 IV: 250ml; Total: 550ml. as6 Outcome: 17:06 Decision to Hospitalize by Provider. rn 19:30 Condition: stable as6 19:30 Instructed on the need for admit. 20:14 Admitted to Tele accompanied by tech, family with patient, via wheelchair, room 401, as6 with oxygen, with chart, Report called to Andrew SABA 20:50 Patient left the ED. as6 Signatures: Dispatcher [employer] EDShahida Love RN RN kl Nieto, Roman, MD MD rn Peltier, Brian, RN RN bp Slawson, Ashby, RN RN as6 Valorie Barry RN RN kr3 Sotello, Ricky [facility]
[2022-12-03] MEDS ORDERED: CEFTRIAXONE 1000 MG/VIAL ONE (17:11)
[2022-12-03] MEDS ORDERED: MORPHINE 2 MG/ML SYR ONE (17:11)
[2022-12-03] MEDS ORDERED: AZITHROMYCIN 500 MG INJ IVPB ONE (17:11)
[2022-12-03] MEDS ORDERED: ONDANSETRON 4 MG/2 ML VIAL ONE (17:11)
[2022-12-03] MEDS ORDERED: NA CHLORIDE 0.9% 250 ML ONE (17:12)
--- NOTE | 2022-12-03 19:20 | P.HP ---
Certification for Inpatient Patient admitted to: Inpatient With expected LOS: >2 Midnights Patient will require the following post-hospital care: None Practitioner: I am a practitioner with admitting privileges, knowledge of patient current condition, hospital course, and medical plan of care. Services: Services provided to patient in accordance with Admission requirements found in Title 42 Section 412.3 of the Code of Federal Regulations Patient History Date of Service: 12/03/22 Reason for admission: Bilateral pneumonia, severe sepsis History of Present Illness: 82-year-old male with history of throat cancer in the past, dysphagia, diabetes mellitus type 2, COPD, hypothyroidism, hyperlipidemia, CAD, BPH, GERD who lives at [facility] for the last approximately 1 year was brought to the emergency department with concern for possible pneumonia. Patient reports that he has been feeling short of breath for the last 2 weeks, also reports increasing dysphagia for the last 2 weeks possibly had an aspiration episode around that time but he cannot be sure. He reports he has been on antibiotics for 1 week now although he is not sure what antibiotic. He was evaluated here in the emergency department SIRS criteria present including tachycardia, tachypnea chest x-ray showed bilateral pneumonia meeting criteria for sepsis. Due to patient's increased work of breathing ED physician ordered BiPAP, at that time patient met criteria for severe sepsis although he declined BiPAP. His other labs were remarkable for BNP 1172. ED provider wishes to admit for further evaluation and management of bilateral pneumonia, severe sepsis. Allergies Ketamine Allergy (Uncoded 05/01/18 17:48) Unknown Sulfa (Sulfonamide Antibio Allergy (Uncoded 05/01/18 17:48) Unknown - Past Medical/Surgical History -: Diabetes mellitus type 2 -: Hypertension -: Hyperlipidemia -: Hypothyroidism -: Dysphagia -: Throat [id number] -: Unable to obtain Psychosocial/ Personal History: Patient resides at [facility] since 2021 - Family History Family History: Reviewed- Non-Contributory - Social History Smoking Status: Former smoker Alcohol use: No CD- Drugs: No Caffeine use: No Place of Residence: Home Review of Systems 10-point ROS is otherwise unremarkable Respiratory: Cough, Shortness of Breath, SOB with Excertion, Sputum Physical Examination - Physical Exam General: Alert, In no apparent distress, Oriented x3 HEENT: Atraumatic, PERRLA, Mucous membr. moist/pink, EOMI, Sclerae nonicteric Neck: Supple, 2+ carotid pulse no bruit, No LAD, Without JVD or thyroid abnormality Respiratory: Diminished, Other (Tachypnea) Cardiovascular: Regular rate/rhythm, Normal S1 S2 Gastrointestinal: Normal bowel sounds, No tenderness Musculoskeletal: No tenderness Integumentary: No rashes Neurological: Normal speech, Normal strength at 5/5 x4 extr, Normal tone, Normal affect Lymphatics: No axilla or inguinal lymphadenopathy - Studies Laboratory Data (last 24 hrs) 12/03/22 16:11: PT 13.1 H, INR 1.19, APTT 29.9 12/03/22 16:11: Sodium 136, Potassium 4.0, BUN 9, Creatinine 0.51 L, Glucose 141 H, Total Bilirubin 0.4, AST 14 L, ALT 15 L, Alkaline Phosphatase 79 12/03/22 16:11: WBC 9.80, Hgb 12.1 L, Hct 36.9 L, Plt Count 335 Assessment and Plan - Plan Assessment: Severe sepsis secondary to bilateral pneumonia-concern for aspiration Dysphagiahistory of throat cancer Diabetes mellitus type 2 Hypertension Hyperlipidemia Hypothyroidism GERD CAD BPH Plan: Severe sepsis secondary to bilateral pneumonia-concern for aspiration Met sepsis criteria with tachycardia, tachypnea, source infection bilateral pneumonia. ED physician ordered BiPAP although patient refused meeting "need for BiPAP" and severe sepsis criteria. He was started on antibiotics Rocephin/Zithromax, will start on Zosyn given concern for aspiration pneumonia. N.p.o., speech therapy consult in place. He is currently tolerating nasal cannula oxygen with bubbler at 9 to 10 L. Will obtain VBG to rule out respiratory acidosis. Dysphagiahistory of throat cancer N.p.o., speech consult, patient reports worsening dysphagia over the course of last 2 weeks. Diabetes mellitus type 2 Every 6 hours Accu-Chek, sliding scale insulin. Hypertension Hold oral antihypertensive at this time given sepsis, restart when appropriate Hyperlipidemia Hypothyroidism GERD CAD BPH Restart home medication once verified. DVT PPX: Lovenox Code status: Full Discharge Plan: Senior Living Plan to discharge in: 72 Hours - Advance Directives Does patient have a Living Will: No Does patient have a Durable POA for Healthcare: No - Code Status/Comfort Care Code Status Assessed: Yes (Full code) Critical Care: No Time Spent Managing Pts Care (In Minutes): 55
[2022-12-03] MEDS ORDERED: ALBUTEROL 2.5 MG/3 ML NEB SOL NEB PRN (21:25)
[2022-12-03] MEDS ORDERED: GLUCAGON 1 MG/VIAL IM PRN (21:25)
[2022-12-03] MEDS ORDERED: IPRATROPIUM BROM 0.5MG/2.5ML NEB PRN (21:25)
[2022-12-03] MEDS ORDERED: D10W 250 ML BAG IV PRN (21:25)
[2022-12-03] MEDS: D5 0.45 NS 1,000 ML IV SCH (22:06)
[2022-12-04] MEDS: PIPER TAZO 3.375 GM in NA CHLORIDE 0.9% 100 ML IV SCH ×2 (00:52→10:12)
[2022-12-04 04:00] LABS: Absolute Lymphocytes (CBC) 1.1 K/uL (0.7-4.9); Hematocrit 32.2 % (39.6-49.0); Lymphocytes % 9.5 % (15.3-44.8); MCV 77.7 fL (80-100); MPV 7.2 fL (7.6-11.3); RBC Red Blood Cell Count 4.14 M/uL (4.33-5.43)
[2022-12-04 04:12] LABS: Potassium 3.1 mmol/L (3.5-5.1)
[2022-12-04] MEDS: INSULIN -REGULAR HUMAN 50 UNIT/0.5 ML ML SQ SCH ×4 (06:00→17:26)
--- NOTE | 2022-12-04 06:18 | P.PN ---
Date of Service: 12/04/22 Subjective: feeling better breathing more comfortably no new/worsening symptoms family report recurrent pneumonias recently; h/o dysphagia; worse in last month per patient ROS: 10 point ROS as noted above, otherwise negative Physical exam GEN: Alert, oriented, NAD; weak voice HEENT: Normal conjunctiva, sclera anicteric CV: Regular rate and rhythm, no edema Pulm: Nonlabored respirations on 4L NC ABD: Soft, nontender, nondistended Neuro: normal affect, lower extremity weakness Problem List Severe sepsis secondary to bilateral pneumonia-concern for aspiration Dysphagiahistory of throat cancer Diabetes mellitus type 2, non-insulin dependent Hypertension Hyperlipidemia Hypothyroidism GERD CAD BPH hypocalcemia, hypomagnesemia, hypokalemia Severe sepsis secondary to bilateral pneumonia-concern for aspiration Dysphagiahistory of throat cancer continue empiric antibiotics family report recurrent pneumonia recently h/o dysphagia, worsened in last month concern for aspiration MBS done - notedl aspiration; speech recommends PEG tube patient and family agreeable GI consulted continue NPO; consider TPN tomorrow pulm consulted - CTA ordered replace electrolytes repeat in AM Diabetes mellitus type 2 Every 6 hours Accu-Chek, sliding scale insulin. Hypertension Hold oral antihypertensive at this time given sepsis, restart when appropriate Hyperlipidemia Hypothyroidism GERD CAD BPH Restart home medication once verified / taking PO; otherwise convert to IV if appropriate VTE: Lovenox Code: Full Dispo: back to [facility], ~3-4 days needs PEG tube, antibiotics
[2022-12-04] MEDS ORDERED: PNEUMOCOCCAL VACCINE 0.5 ML IMVAC ONE (08:00)
[2022-12-04] MEDS ORDERED: Magnesium Sulfate 2gm IVPB 2 G/50 ML BAG IV ONE (08:37)
[2022-12-04] MEDS ORDERED: ENOXAPARIN 40 MG/0.4 ML SQ SCH (09:00)
[2022-12-04] MEDS: KCL 20 MEQ/100 mL IVPB 20 MEQ/100 ML BAG IV SCH ×2 (09:40→11:27)
--- NOTE | 2022-12-04 12:08 | P.CNS ---
Date of Consult: 12/04/22 Reason for Consult: Shortness of breath Chief Complaint: Shortness of History of Present Illness: Patient is 82 years of age multiple medical problems metabolic syndrome releases of the chest in of ear nose and throat admitted with worsening cough for the past week not currently smoke denies any fever or chills. For the possibility of pneumonia also been reporting increasing dysphagia recently treated with 1 week of antibiotics currently was tachycardic tachypneic on admission Allergies ketamine Allergy (Unknown, Verified 12/05/22 04:38) Anaphylaxis Sulfa (Sulfonamide Antibiotics) Allergy (Unknown, Verified 12/05/22 04:37) Anaphylaxis Home Medications: Atorvastatin Calcium [Lipitor] 20 mg PO BEDTIME 12/04/22 Clopidogrel Bisulfate [Plavix] 75 mg PO DAILY 12/04/22 Metformin HCl [Glucophage] 1,000 mg PO BIDWM 12/04/22 Mirtazapine [Remeron] 15 mg PO BEDTIME 12/04/22 Pantoprazole [Protonix Tab] 20 mg PO DAILY 12/04/22 Sertraline [Zoloft] 50 mg PO DAILY 12/04/22 - Past Medical/Surgical History -: Diabetes mellitus type 2 -: Hypertension -: Hyperlipidemia -: Hypothyroidism -: Dysphagia -: Throat [id number] -: Lung cancer -: triple bypass -: Appendicectomy Psychosocial/ Personal History: Patient resides at [facility] since 2021 - Social History Smoking Status: Current every day smoker Alcohol use: No CD- Drugs: No Caffeine use: No Place of Residence: Skilled Nursing Review of Systems 10-point ROS is otherwise unremarkable General: Weakness Respiratory: Shortness of Breath Physical Examination Temp Pulse Resp BP Pulse Ox 97.7 F 76 17 145/86 H 100 12/04/22 08:00 12/04/22 08:00 12/04/22 08:00 12/04/22 08:00 12/04/22 08:00 General: Alert, Oriented x3 HEENT: Atraumatic Neck: Supple Respiratory: Clear to auscultation bilaterally, Diminished Cardiovascular: No edema, Normal pulses, Normal S1 S2 Gastrointestinal: Normal bowel sounds, Soft and benign Integumentary: No rashes, No breakdown Laboratory Data (last 24 hrs) 12/03/22 16:11: PT 13.1 H, INR 1.19, APTT 29.9 12/03/22 16:11: Sodium 136, Potassium 4.0, BUN 9, Creatinine 0.51 L, Glucose 141 H, Total Bilirubin 0.4, AST 14 L, ALT 15 L, Alkaline Phosphatase 79 12/03/22 16:11: WBC 9.80, Hgb 12.1 L, Hct 36.9 L, Plt Count 335 - Problems (1) Shortness of breath Current Visit: Yes Status: Acute Plan: Patient is 82 years of age admitted with shortness of breath he is a former heavy smoker he had lung and throat cancer elevated right hemidiaphragm has a history of coronary artery disease only has underlying obstructive airways disease patient has multiple electrolyte abnormalities hypokalemia hypomagnesemia Calcitonin level is borderline normal white count is mildly elevated chest x-ray reviewed is clear elevated right hemidiaphragm minimal changes on chest x-ray doubt infection can DC antibiotics for now him with bronchodilators and steroid not sure why this patient is hypokalemic no evidence of diuretic use for now
[2022-12-04] MEDS: POTASSIUM 25 MEQ EFFERV TAB PO SCH (12:09)
--- NOTE | 2022-12-04 13:38 | RAD REPORT ---
EXAM DESCRIPTION: CT - Chest Angio - 12/04/2022 1:31 pm CLINICAL HISTORY: Chest pain. PE COMPARISON: Chest Single View dated 12/03/2022 TECHNIQUE: CT angiogram of the pulmonary arteries was performed with MIP. All CT scans are performed using dose optimization technique as appropriate and may include automated exposure control or mA/KV adjustment according to patient size. FINDINGS: No evidence of pulmonary thromboembolism. No acute aortic finding demonstrated. Patchy opacity in the left lung base is present. Significant atelectasis of the right lower lung. Moderate to large right pleural effusion. No concerning bony finding. IMPRESSION: No evidence of pulmonary thromboembolism. Moderate to large right pleural effusion. Right lung base atelectasis is present. Small opacity in the posterior left lung base may be pneumonia/infiltrate.
[2022-12-04] MEDS: IPRATROPIUM BROM 0.5MG/2.5ML NEB SCH ×2 (14:00→19:50)
[2022-12-04] MEDS ORDERED: ALBUTEROL 2.5 MG/3 ML NEB SOL NEB PRN (14:00)
[2022-12-04] MEDS: METHYLPREDNISOLONE 40 MG INJ IV SCH ×2 (14:36→17:26)
--- NOTE | 2022-12-04 15:27 | RAD REPORT ---
EXAM DESCRIPTION: RAD - Barium Swallow Modified - 12/04/2022 3:17 pm CLINICAL HISTORY: aspiration COMPARISON: <Comparisons> TECHNIQUE: The patient was given liquid, semi-solid and solid forms of barium. Lateral view fluorosc opic imaging was performed in conjunction with speech pathology service. FINDINGS: Laryngeal penetration: not cleared with thin liquid and nectar Aspiration: cough with thin Pharyngeal residue: Vallecular, pyriform - severe Reduced hyolaryngeal excursion. residual builds during meal and aspiration amount increases. Pt fabienne ble to clear residual and eventually spits up to mouth and spits out. Total fluoroscopy time: 2 minutes and 25 seconds
--- NOTE | 2022-12-04 16:56 | EKG ---
Test Date: 2022-12-03 Test Time: 16:01:11 Control Specialist: PAULO MEASUREMENT RESULTS: Intervals: Rate: 88 MI: 114 QRSD: 86 QT: 370 QTc: 447 [place]: P: 73 MI: 114 QRS: 55 T: 72 INTERPRETIVE STATEMENTS: Normal sinus rhythm Normal ECG No previous ECG available for comparison Electronically Signed On 12-04-22 16:54:19 BACK STRIP MACHINE OPERATOR by Keith Harvey
[2022-12-04] MEDS: MAGNESIUM SULFATE 1 gm IVPB 1 GM/100 ML BAG IV ONE ×2 (18:39→18:44)
[2022-12-04] MEDS: ONDANSETRON 4 MG/2 ML VIAL IV PRN (18:46)
[2022-12-04] MEDS ORDERED: LORazepam 2 MG/ML VIAL IV ONE (20:17)
[2022-12-04] MEDS: D5 0.45 NS 1,000 ML IV SCH (20:49)
[2022-12-05] MEDS: METHYLPREDNISOLONE 40 MG INJ IV SCH ×3 (00:14→17:16)
[2022-12-05] MEDS: D5 0.45 NS 1,000 ML IV SCH ×2 (00:15→13:25)
[2022-12-05] MEDS: IPRATROPIUM BROM 0.5MG/2.5ML NEB SCH ×4 (01:50→20:20)
[2022-12-05 03:49] LABS: Absolute Lymphocytes (CBC) 0.5 K/uL (0.7-4.9); Hematocrit 31.2 % (39.6-49.0); Lymphocytes % 6.2 % (15.3-44.8); MPV 7.1 fL (7.6-11.3); RBC Red Blood Cell Count 4.01 M/uL (4.33-5.43)
[2022-12-05 04:02] LABS: Bicarbonate 30 mmol/L (21-32); Glomerular Filtration Rate 121 ml/min (=/>90); Glucose Level 186 mg/dL (74-106); Magnesium 1.9 mg/dL (1.6-2.4); Phosphorus 1.7 mg/dL (2.5-4.9); Potassium 3.2 mmol/L (3.5-5.1); Sodium Level 138 mmol/L (136-145)
[2022-12-05 04:04] LABS: BUN Blood Urea Nitrogen < 3 mg/dL (7-18)
[2022-12-05] MEDS: INSULIN -REGULAR HUMAN 50 UNIT/0.5 ML ML SQ SCH ×4 (04:23→18:00)
[2022-12-05] MEDS: KCL 20 MEQ/100 mL IVPB 20 MEQ/100 ML BAG IV SCH ×2 (04:49→10:22)
[2022-12-05 05:00] LABS: Blood Morphology Comment NOT SEEN (NOT SEEN); Platelet Estimate ADEQ
--- NOTE | 2022-12-05 07:07 | P.PN ---
Date of Service: 12/05/22 Subjective: oxygen weaned off plan for PEG today afebrile breathing more comfortably, feels very weak ROS: 10 point ROS as noted above, otherwise negative Physical exam GEN: Alert, oriented, NAD; weak voice HEENT: Normal conjunctiva, sclera anicteric CV: Regular rate and rhythm, no edema Pulm: Nonlabored respirations on room air, +cough, diminished at bases bilaterally ABD: Soft, nontender, nondistended Neuro: normal affect, lower extremity weakness Problem List Severe sepsis secondary to bilateral pneumonia-concern for aspiration Dysphagiahistory of throat cancer Diabetes mellitus type 2, non-insulin dependent Hypertension Hyperlipidemia Hypothyroidism GERD CAD BPH hypocalcemia, hypomagnesemia, hypokalemia Severe sepsis secondary to bilateral pneumonia-concern for aspiration Dysphagiahistory of throat cancer continue empiric antibiotic - zosyn for suspected aspiration family report recurrent pneumonias recently h/o dysphagia, worsened in last month MBS done - notedl aspiration; speech recommends PEG tube patient and family agreeable GI consulted strict NPO for now PEG tube placement to be done today pulm consulted - do not suspect infection replace electrolytes debilitated, PT consulted Diabetes mellitus type 2 sliding scale, long acting as appropriate Hypertension Hold oral antihypertensive at this time given sepsis, restart when appropriate Hyperlipidemia Hypothyroidism GERD CAD BPH Restart home medication once verified will need to convert to via PEG VTE: Lovenox Code: Full Dispo: back to [facility], ~2 days pending peg tube, feeds advanced,
[2022-12-05] MEDS: POTASSIUM 25 MEQ EFFERV TAB PO SCH (07:56)
[2022-12-05] MEDS ORDERED: POTASSIUM PHOS IN 0.9 % NACL 15 MMOL/250 ML BAG IV ONE (08:00)
[2022-12-05] MEDS: PIPER TAZO 3.375 GM in NA CHLORIDE 0.9% 100 ML IV SCH ×2 (10:23→17:16)
[2022-12-05] MEDS ORDERED: NA CHLORIDE 0.9% 1,000 ML ONE (10:58)
[2022-12-05] MEDS ORDERED: propofoL 200 MG/20 ML VIAL IV ONE (11:48)
[2022-12-05] MEDS ORDERED: ETOMIDATE 20 MG/10 ML VIAL IV ONE (11:48)
[2022-12-05] MEDS ORDERED: LIDOCAINE 1% MPF 5 ML VIAL ONE (11:48)
--- NOTE | 2022-12-05 12:28 | ENDO RPT ---
[address], [address] EGD WITH PEG PROCEDURE REPORT EXAM DATE: 12/05/2022 PATIENT NAME: Perry Osorio MR #: [id number] BIRTHDATE: 1940 ATTENDING: [address] STATUS: inpatient - [facility] [employer] GATE: Dede France RN, Jyoti Rodriguez RN, and Muna Lamar INDICATIONS: The patient is a 82 yr old Male here for an EGD with PEG due to dysphagia and malnutrition PROCEDURE PERFORMED: EGD with PEG placement MEDICATIONS: Per Anesthesia. TOPICAL ANESTHETIC: none CONSENT: The patient understands the risks and benefits of the procedure and understands that these risks include, but are not limited to: sedation, allergic reaction, infection, perforation and/or bleeding. Alternative means of evaluation and treatment include, among others: physical exam, x-rays, and/or surgical intervention. The patient elects to proceed with this endoscopic procedure. DESCRIPTION OF PROCEDURE: During intra-op preparation period all mechanical medical equipment was checked for proper function. Hand hygiene and appropriate measures for infection prevention was taken. After the risks, benefits and alternatives of the procedure were thoroughly explained, Informed consent was verified, confirmed and timeout was successfully executed by the treatment team. The patient was anesthetized with topical anesthesia and the Pentax EG-[id number] ([id number]) endoscope was introduced through the mouth and advanced to the third portion of the duodenum. The instrument was slowly withdrawn as the mucosa was fully examined. LA Class A esophagitis was found in the lower esophagus. A small hiatal hernia was found Mild gastritis was found in the body of the stomach. Nodular mucosa was found in the body of the stomach. The stomach was then inflated with air, and by a combination of transillumination and manual palpation, the site for the gastrostomy tube placement was selected and marked on the anterior abdominal wall. The skin of the anterior abdomen was surgically prepped and draped with sterile towels. Utilizing strict sterile technique, the selected site was then anesthetized with 1% xylocaine by injection into the skin and subcutaneous tissue. A 1 cm incision was made through the skin and subcutaneous tissue, and the needle/cannula assembly was then passed through the abdominal wall and through the anterior wall of the stomach, maintaining visualization with the endoscope. A snare device previously placed through the instrument channel was then opened and placed around the cannula, the needle was removed, and the insertion wire was passed through the cannula and into the stomach lumen. The snare was then loosened from the cannula, and repositioned to snare the insertion wire. The snare was then pulled up to the endoscope distal tip, and the scope was then withdrawn bringing with it the snare and insertion wire. The insertion wire was then released from the snare, and the PEG PUSH gastrostomy tube placed over the guidewire. Using the push technique, the tube was then pushed into place over the insertion wire at the abdominal wall end. The tube insertion site was then cleansed once again, and the external bolster was placed over the tube to secure it to the abdominal wall. A sterile dressing was then applied, and the procedure terminated. Retroflexed views revealed no abnormalities. The gastroscope was then slowly withdrawn and removed. ADVERSE EVENT: There were no complications. IMPRESSIONS: 1. Status post 20 Fr percutaneous endoscopic gastrostomy tube 2. LA class A esophagitis in the lower esophagus 3. Small hiatal hernia 4. Mild gastritis in the body of the stomach 5. Nodular mucosa in the body of the stomach RECOMMENDATIONS: 1. begin PEG use in 3 hours 2. check helicobacter pylori status, treat if indicated 3. acid suppression therapy REPEAT EXAM: Sabas Watt Dr eSigned: Sabas Watt Dr 12/05/2022 12:27 PM cc: CPT CODES: ICD9 CODES: PATIENT NAME: Perry Osorio MR#: [id number]
[2022-12-05] MEDS: ONDANSETRON 4 MG/2 ML VIAL IV PRN (15:19)
[2022-12-05] MEDS: GLUCERNA 1.5 CAL 1,000 ML BOT FT SCH ×2 (17:16→20:06)
[2022-12-05] MEDS ORDERED: LORazepam 2 MG/ML VIAL IV ONE (19:51)
[2022-12-06] MEDS: METHYLPREDNISOLONE 40 MG INJ IV SCH ×3 (00:18→21:24)
[2022-12-06] MEDS: INSULIN -REGULAR HUMAN 50 UNIT/0.5 ML ML SQ SCH ×4 (00:18→18:00)
[2022-12-06] MEDS: PIPER TAZO 3.375 GM in NA CHLORIDE 0.9% 100 ML IV SCH ×3 (00:18→17:49)
[2022-12-06] MEDS: IPRATROPIUM BROM 0.5MG/2.5ML NEB SCH ×4 (01:40→19:25)
[2022-12-06] MEDS: D5 0.45 NS 1,000 ML IV SCH (02:45)
[2022-12-06 04:42] LABS: Absolute Lymphocytes (CBC) 0.6 K/uL (0.7-4.9); Hematocrit 33.6 % (39.6-49.0); Lymphocytes % 5.1 % (15.3-44.8); MCV 78.6 fL (80-100); MPV 7.1 fL (7.6-11.3); RBC Red Blood Cell Count 4.28 M/uL (4.33-5.43)
[2022-12-06 04:50] LABS: Potassium 3.7 mmol/L (3.5-5.1)
[2022-12-06] MEDS ORDERED: POTASSIUM 25 MEQ EFFERV TAB PO ONE (05:03)
--- NOTE | 2022-12-06 06:55 | P.PN ---
Date of Service: 12/06/22 Subjective: improving tolerating tube feeds; loose stool continues with generalized weakness / debility overall feels better oxygen weaned down afebrile ROS: 10 point ROS as noted above, otherwise negative Physical exam GEN: Alert, oriented, NAD; weak voice HEENT: Normal conjunctiva, sclera anicteric CV: Regular rate and rhythm, no edema Pulm: Nonlabored respirations on room air, +cough, diminished at bases bilaterally ABD: Soft, nontender, nondistended, PEG in place Neuro: normal affect, lower extremity weakness Problem List Severe sepsis secondary to bilateral pneumonia-concern for aspiration Dysphagiahistory of throat cancer Diabetes mellitus type 2, non-insulin dependent Hypertension Hyperlipidemia Hypothyroidism GERD CAD BPH hypocalcemia, hypomagnesemia, hypokalemia Severe sepsis secondary to bilateral pneumonia-concern for aspiration Dysphagiahistory of throat cancer continue empiric antibiotic - zosyn for aspiration, suspected pneumonia vs pneumonitis consulted pulm - does not feel this is infectious after reviewing CT family report recurrent pneumonias recently h/o dysphagia, worsened in last month MBS done - noted aspiration; speech recommends PEG tube patient and family agreeable GI consulted, s/p PEG tube complete 7 day antibiotic course strict NPO for now PEG tube placement on 12/05 tube feeds started evening 2 replace electrolytes debilitated, PT consulted Diabetes mellitus type 2 sliding scale, long acting as appropriate Hypertension Hold oral antihypertensive at this time given sepsis, restart when appropriate Hyperlipidemia Hypothyroidism GERD CAD BPH Restart home medication once verified will need to convert to via PEG VTE: Lovenox Code: Full Dispo: back to [facility], anticipate tomorrow
[2022-12-06] MEDS: POTASSIUM 25 MEQ EFFERV TAB PO SCH ×2 (07:19→09:44)
[2022-12-06] MEDS: GLUCERNA 1.5 CAL 1,000 ML BOT FT SCH ×4 (09:31→21:00)
--- NOTE | 2022-12-06 13:23 | P.PN ---
Subjective Date of Service: 12/06/22 Chief Complaint: Shortness of Subjective: Improving Review of Systems is unable to be obtained Physical Examination - Vital Signs Temperature: 97.1 F Blood Pressure: 148/72 Pulse: 86 Respirations: 16 Pulse Ox (%): 93 - Physical Exam General: Alert, Oriented x2 Respiratory: Clear to auscultation bilaterally, Diminished Cardiovascular: No edema, Regular rate/rhythm - Studies Microbiology Data (last 24 hrs): 12/03/22 03:55 Sputum Sputum Gram Stain - Final 12/03/22 03:55 Sputum Culture & Sensitivity - Final Escherichia Coli Assessment And Plan - Current Problems (Diagnosis) (1) Shortness of breath Current Visit: Yes Status: Acute Plan: Patient is status post peg tube currently stable no evidence of sepsisThese cultures are all negative E. coli isolated in the respiratory specimens most likely a contaminant Pro calcitonin level is only mildly elevated hemodynamically stable no feverChemistries reviewed white count is mildly elevatedPatient is 93% on room air recommend nebulized bronchodilator or possibly a trilogy in the retirement for his presumed underlying COPD
--- NOTE | 2022-12-06 18:26 | P.PN ---
Subjective Date of Service: 12/06/22 Chief Complaint: Dysphagia, failed MBS swallow study, aspiration pneumonia, prot-mary anne malnutr Subjective: Improving (s/p EGD with PEG yesterday. He feels well. Continue to take IV antibiotics for pneumonia. Tolerating TFs well.) Review of Systems 10-point ROS is otherwise unremarkable General: Weakness, Malaise (Improved. ) Gastrointestinal: Other (dysphagia) Physical Examination - Vital Signs Temperature: 97.2 F Blood Pressure: 165/74 Pulse: 85 Respirations: 16 Pulse Ox (%): 92 - Physical Exam General: Alert, In no apparent distress, Oriented x3, Cooperative HEENT: Atraumatic, Normocephalic, PERRLA, EOMI Neck: Supple Respiratory: Normal air movement Cardiovascular: Normal pulses Gastrointestinal: Soft and benign Neurological: Normal speech, Normal strength at 5/5 x4 extr - Studies Microbiology Data (last 24 hrs): 12/03/22 03:55 Sputum Sputum Gram Stain - Final 12/03/22 03:55 Sputum Culture & Sensitivity - Final Escherichia Coli Assessment And Plan - Current Problems (Diagnosis) (1) Dysphagia Current Visit: Yes Status: Acute Comment: s/p CVAs (2) Abnormal barium swallow Current Visit: Yes Status: Acute (3) Aspiration pneumonia Current Visit: Yes Status: Acute (4) Protein calorie malnutrition Current Visit: Yes Status: Acute - Plan REC:1) continue tube feeds 2) check albumin and pre-albumin
[2022-12-06] MEDS ORDERED: MELATONIN 5 MG TABLET PO PRN (20:21)
[2022-12-06 21:10] LABS: Albumin 2.5 g/dL (3.4-5.0); Prealbumin 12.3 mg/dL (20-40)
[2022-12-07] MEDS: PIPER TAZO 3.375 GM in NA CHLORIDE 0.9% 100 ML IV SCH ×2 (00:13→09:00)
[2022-12-07] MEDS ORDERED: TRAZODONE 50 MG TABLET FT PRN (00:16)
[2022-12-07] MEDS: IPRATROPIUM BROM 0.5MG/2.5ML NEB SCH ×2 (01:20→07:41)
[2022-12-07 03:41] LABS: Absolute Lymphocytes (CBC) 0.5 K/uL (0.7-4.9); Lymphocytes % 4.2 % (15.3-44.8); MCV 78.6 fL (80-100); MPV 6.8 fL (7.6-11.3); RBC Red Blood Cell Count 4.33 M/uL (4.33-5.43)
[2022-12-07 03:52] LABS: Potassium 4.1 mmol/L (3.5-5.1)
[2022-12-07 05:03] VITALS: BMI 21.3
[2022-12-07] MEDS: INSULIN -REGULAR HUMAN 50 UNIT/0.5 ML ML SQ SCH ×2 (06:00)
[2022-12-07 08:15] VITALS: BP 161/78; TEMP 96.9
[2022-12-07 08:35] VITALS: O2SAT 99
[2022-12-07] MEDS: GLUCERNA 1.5 CAL 1,000 ML BOT FT SCH (09:22)
[2022-12-07] MEDS: METHYLPREDNISOLONE 40 MG INJ IV SCH (09:23)
[2022-12-07] MEDS: POTASSIUM 25 MEQ EFFERV TAB PO SCH (09:23)
--- NOTE | 2022-12-09 22:02 | P.DS ---
Admission Date: 12/03/22 Discharge Date: 12/07/22 Disposition: TRANSFER TO [facility] Reason for Admission: Dysphagia, failed MBS swallow study, aspiration pneumonia, prot-raoul malnutr Consultations: GI - Dr. Watt Pulmonology - Dr. Laguna Brief History of Present Illness: 82-year-old male with history of throat cancer in the past, dysphagia, diabetes mellitus type 2, COPD, hypothyroidism, hyperlipidemia, CAD, BPH, GERD who lives at [facility] for the last approximately 1 year was brought to the emergency department with concern for possible pneumonia. Patient reports that he has been feeling short of breath for the last 2 weeks, also reports increasing dysphagia for the last 2 weeks possibly had an aspiration episode around that time but he cannot be sure. He reports he has been on antibiotics for 1 week now although he is not sure what antibiotic. He was evaluated here in the emergency department SIRS criteria present including tachycardia, tachypnea chest x-ray showed bilateral pneumonia meeting criteria for sepsis. Due to patient's increased work of breathing ED physician ordered BiPAP, at that time patient met criteria for severe sepsis although he declined BiPAP. His other labs were remarkable for BNP 1172. Hospital Course: Problem List Severe sepsis secondary to bilateral pneumonia- from aspiration Dysphagiahistory of throat cancer Diabetes mellitus type 2, non-insulin dependent Hypertension Hyperlipidemia Hypothyroidism GERD CAD BPH hypocalcemia, hypomagnesemia, hypokalemia Presented with shortness of breath and weakness. On presentation concern for sepsis due to vital signs and hypoxia, with the need for oxygen supplementation. He was afebrile and without leukocytosis. Chest x-ray noted bilateral opacities, possibly pulmonary edema vs pneumonia. He has been having increased difficulty swallowing, recurrent pneumonias, and aspiration events. He was empirically treated with IV antibiotc, zosyn and IV fluids. Pulmonology was consulted and obtained CT chest which noted some mild copd changes, no obvious consolidation or fluid collection. E.coli was cultured from sputum. Dr. Laguna, pulmonology felt this was contaminant/ not infectious and symptoms more due to COPD and a chronically elevated right hemidiaphragm. Speech therapy was consulted, and modified barium swallow noted aspiration. Cheikh mmended strict NPO and PEG tube. Dr. Watt, GI, placed PEG tube on 12/05 without complications. Patient was started on tube feeds and tolerated well. Symptoms significantly improved. He remained afebrile. Small increase in WBCs, secondary to steroids. Stable [facility] to [facility]. Continue medications, but to be crushed / given via PEG. Continue augmentin to complete 7 day total course of antibiotics Strict NPO Continue PT/OT/ST Pulmonology recommended nebs. Vital Signs/Physical Exam: Temp Pulse Resp BP Pulse Ox 96.9 F 77 16 161/78 H 99 12/07/22 08:00 12/07/22 08:00 12/07/22 08:00 12/07/22 08:00 12/07/22 08:00 Physical exam GEN: Alert, oriented, NAD; weak voice HEENT: Normal conjunctiva, sclera anicteric CV: Regular rate and rhythm, no edema Pulm: Nonlabored respirations on room air, +cough, diminished at bases bilaterally, R>L ABD: Soft, nontender, nondistended, PEG in place Neuro: normal affect, lower extremity weakness Laboratory Data at Discharge: WBC 12.50 K/uL (4.3-10.9) H 12/07/22 03:27 Hgb 11.2 g/dL (13.6-17.9) L 12/07/22 03:27 Hct 34.0 % (39.6-49.0) L 12/07/22 03:27 Plt Count 348 K/uL (152-406) 12/07/22 03:27 PT 13.1 SECONDS (9.5-12.5) H 12/03/22 16:11 INR 1.19 12/03/22 16:11 APTT 29.9 SECONDS (24.3-36.9) 12/03/22 16:11 Sodium 137 mmol/L (136-145) 12/07/22 03:27 Potassium 4.1 mmol/L (3.5-5.1) 12/07/22 03:27 BUN 8 mg/dL (7-18) 12/07/22 03:27 Creatinine 0.39 mg/dL (0.70-1.30) L 12/07/22 03:27 Glucose 199 mg/dL (74-106) H 12/07/22 03:27 Phosphorus 1.7 mg/dL (2.5-4.9) L 12/05/22 03:11 Magnesium 1.9 mg/dL (1.6-2.4) 12/05/22 03:11 Total Bilirubin 0.4 mg/dL (0.2-1.0) 12/03/22 16:11 AST 14 U/L (15-37) L 12/03/22 16:11 ALT 15 U/L (16-61) L 12/03/22 16:11 Alkaline Phosphatase 79 U/L (45-117) 12/03/22 16:11 Home Medications: Atorvastatin Calcium [Lipitor*] 20 mg PO BEDTIME 12/04/22 Clopidogrel Bisulfate [Plavix*] 75 mg PO DAILY 12/04/22 Metformin HCl [Glucophage*] 1,000 mg PO BIDWM 12/04/22 Mirtazapine [Remeron*] 15 mg PO BEDTIME 12/04/22 Sertraline [Zoloft*] 50 mg PO DAILY 12/04/22 Arformoterol Tartrate [Brovana] 15 mcg IH BID 30 Days #120 ml 12/06/22 Amox/Clavulanate [Augmentin 875-125 Tab] 875 mg FT BID 5 Days #10 tab 12/07/22 Glucerna 1.5 Raoul 237 ml FT QID bot 12/07/22 Pantoprazole Granules [Protonix Granules*] 40 mg FT DAILY 30 Days #30 packet 12/07/22 predniSONE [Deltasone*] 10 mg FT DAILY 4 Days #4 tab 12/07/22 New Medications: Amox/Clavulanate [Augmentin 875-125 Tab] 875 mg FT BID 5 Days #10 tab Arformoterol Tartrate [Brovana] 15 mcg IH BID 30 Days #120 ml predniSONE [Deltasone*] 10 mg FT DAILY 4 Days #4 tab Pantoprazole Granules [Protonix Granules*] 40 mg FT DAILY 30 Days #30 packet Physician Discharge Instructions: Presented with shortness of breath and weakness. On presentation concern for sepsis due to vital signs and hypoxia, with the need for oxygen supplementation. He was afebrile and without leukocytosis. Chest x-ray noted bilateral opacities, possibly pulmonary edema vs pneumonia. He has been having increased difficulty swallowing, recurrent pneumonias, and aspiration events. He was empirically treated with IV antibiotc, zosyn and IV fluids. Pulmonology was consulted and obtained CT chest which noted some mild copd changes, no obvious consolidation or fluid collection. E.coli was cultured from sputum. Dr. Laguna, pulmonology felt this was contaminant/ not infectious and symptoms more due to COPD and a chronically elevated right hemidiaphragm. Speech therapy was consulted, and modified barium swallow noted aspiration. Recommended strict NPO and PEG tube. Dr. Watt, GI, placed PEG tube on 12/05 without complications. Patient was started on tube feeds and tolerated well. Symptoms significantly improved. He remained afebrile. Small increase in WBCs, secondary to steroids. Stable for [facility] back to [facility]. Continue medications, but to be crushed / given via PEG. Continue augmentin to complete 7 day total course of antibiotics Strict NPO Continue PT/OT/ST Pulmonology recommended nebs. Followup: Markus Majano MD [Primary Care Provider] - Time spent managing pt's care (in minutes): 45
== END 2022-12-07 12:43 | DRG 871 ==
LOC: ER 15:33 → ERHOLD 18:51 → 4TH 19:28
PROVIDERS: ADMIT Hospitalist; ATTEND Hospitalist
PROC: 0DH63UZ Insertion of Feeding Device into Stomach, Percutaneous Approach (ICD-10-PCS; principal; 2022-12-05 11:45)
PROC: 3E0336Z Introduction of Nutritional Substance into Peripheral Vein, Percutaneous Approach (ICD-10-PCS; 2022-12-06)
DX: A41.51 Sepsis due to Escherichia coli [E. coli] (principal); J69.0 Pneumonitis due to inhalation of food and vomit; E46 Unspecified protein-calorie malnutrition; I10 Essential (primary) hypertension; E11.9 Type 2 diabetes mellitus without complications; R65.20 Severe sepsis without septic shock; K44.9 Diaphragmatic hernia without obstruction or gangrene; K29.70 Gastritis, unspecified, without bleeding; J44.9 Chronic obstructive pulmonary disease, unspecified; E03.9 Hypothyroidism, unspecified; E78.5 Hyperlipidemia, unspecified; E83.51 Hypocalcemia; E83.42 Hypomagnesemia; E87.6 Hypokalemia; K21.9 Gastro-esophageal reflux disease without esophagitis; I69.391 Dysphagia following cerebral infarction; N40.0 Benign prostatic hyperplasia without lower urinary tract symptoms; I25.10 Atherosclerotic heart disease of native coronary artery without angina pectoris; K20.90 Esophagitis, unspecified without bleeding; I25.2 Old myocardial infarction; T38.0X5A Adverse effect of glucocorticoids and synthetic analogues, initial encounter; R09.02 Hypoxemia; Z88.8 Allergy status to other drugs, medicaments and biological substances; Z88.1 Allergy status to other antibiotic agents; Z79.02 Long term (current) use of antithrombotics/antiplatelets; Z79.84 Long term (current) use of oral hypoglycemic drugs; Z79.52 Long term (current) use of systemic steroids; Z68.21 Body mass index [BMI] 21.0-21.9, adult; Z87.891 Personal history of nicotine dependence; Z79.899 Other long term (current) drug therapy; Z85.118 Personal history of other malignant neoplasm of bronchus and lung; Z20.822 Contact with and (suspected) exposure to COVID-19
CPT/HCPCS: 0240U; 36415; 71045; 71275; 74230; 80048; 80053; 82040; 82947; 83605; 83735; 83880; 84100; 84132; 84134; 84145; 85025; 85610; 85730; 87040; 87070; 87077; 87186; 87205; 92526; 92611; 93005; 94010; 94640; 94760; 96365; 96366; 96367; 96375; 97110; 97161; 97530; 99285; J0456; J1650; J1815; J2001; J2270; J2405; J2543; J2704; J2920; J3475; J3480; J7030; J7050; J7613; J7644; J7799; Q9967; U0003

== ENCOUNTER 2022-12-07 21:47 | Inpatient (IN) | payer OTHER ==
--- OUTSIDE RECORDS SUMMARY | 2022-12-07 21:51 | XMS REPORT | Continuity of Care Document ---
:1940 Author Organization [facility] t Address [address] [place] [address] Care Team Providers Name Role Phone Asked, No Pcp Primary Care Physician Unavailable Mak Luna Attending Clinician Gilbert Murillo Attending Clinician Gilbert Murillo Admitting Clinician Problems Condition Condition Condition Status Onset Resolution Last Treating Co mments Source Name Details Category Date Date Treatment Clinician Date [id number] Bilateral Problem Com mon hand [facility] numbness - [facility] [id number] Primary Problem Commo n osteoarthr [id number] Dupuytren' Problem C ommon [id number] s Spirit contractur - [facility] e of both [facility] Dysphagia, Dysphagia Problem 2018-08-27 Memoria unspecifie , 04:01:04 l d unspecifie Serafin hopkins 08/27/2018 [facility] Allergies, Adverse Reactions, Alerts Allergy Allergy Status Severity Reaction(s) Onset Inactive Treating Comm ents Source Name Type Date Date Clinician ketamine ketamine Active Unknown Commo n [facility] - [facility] Sulfona Sulfona Active Unknown Commo n mide mide Spirit (substan (substan - [facility] ce) ce) [facility] Social History Social Habit Start Date Stop Date Quantity Comments Source History of Tobacco [facility] Use [facility] Sex Assigned At [birth year] [facility] 00:00:00 00:00:00 Smoking Status Start Date Stop Date Source Tobacco smoking consumption Meth [facility] unknown Never Smoker [facility] Medications Ordered Filled Start Stop Current Ordering Indication Dosage Frequency Signature Comments Components Source Medication Medication Date Date Medication? Clinician (SIG) Name Name Gabapentin Gabapentin No Gabapentin Protonix Protonix No Protonix Furosemide Furosemide No Furosemide MiraLax MiraLax No MiraLax Potassium Potassium No Potassium Toprol XL Toprol XL No Toprol XL Alfuzosin Alfuzosin No Alfuzosin HCl HCl HCl traZODone traZODone No traZODone HCl HCl HCl Ipratropium Ipratropium No Ipratropiu [place] Levothyroxi Levothyroxi No Levothyrox ne Sodium ne Sodium ine Sodium Vitamin A&D Vitamin A&D No Vitamin A&D metFORMIN metFORMIN No metFORMIN HCl HCl HCl Imodium A-D Imodium A-D No Imodium A-D Vitamin B Vitamin B No Vitamin B 12 10 15 guaiFENesin guaiFENesin No guaiFENesi n Melatonin Melatonin [...] HCl HCl HCl Ipratropium Ipratropium No Ipratropiu [place] Levothyroxi Levothyroxi No Levothyrox ne Sodium ne Sodium ine Sodium Vitamin A&D Vitamin A&D No Vitamin A&D metFORMIN metFORMIN No metFORMIN HCl HCl HCl Imodium A-D Imodium A-D No Imodium A-D Vitamin B Vitamin B No Vitamin B 12 10 15 guaiFENesin guaiFENesin No guaiFENesi n Melatonin Melatonin [...] HCl HCl HCl Ipratropium Ipratropium No Ipratropiu [place] m [place] Levothyroxi Levothyroxi No Levothyrox ne Sodium ne [...] Timoptic No Timoptic Lipitor Lipitor No Lipitor Vital Signs Vital Name Observation Time Observation Value Comments Source blood pressure 2022-08-08 10:30:00 130 mm[Hg] [facility] - systolic [facility] blood pressure 2022-08-08 10:30:00 78 mm[Hg] [facility] - diastolic [facility] height 2022-08-08 10:30:00 69 [in_i] [facility] weight 2022-08-08 10:30:00 160 [lb_av] [facility] temperature 2022-08-08 10:30:00 98.1 [degF] [facility] bmi 2022-08-08 10:30:00 23.63 kg/m2 [facility] Procedures This patient has no known procedures. Plan of Care Planned Activity Planned Date Details Comments Source Future Scheduled 2022-12-07 COVID-19 VACCINE (#1) [facility] Test 14:54:24 [code = COVID-19 VACCINE (#1)] Future Scheduled 2022-12-07 SHINGLES VACCINES (1 Met [facility] Test 14:54:24 of 2) [code = SHINGLES VACCINES (1 of 2)] Future Scheduled 2022-12-07 65+ PNEUMOCOCCAL Methodi [facility] Test 14:54:24 VACCINE (1 - PCV) [code = 65+ PNEUMOCOCCAL VACCINE (1 - PCV)] Future Scheduled 2022-12-07 INFLUENZA VACCINE [facility] Test 14:54:24 [code = INFLUENZA VACCINE] Future Scheduled 2022-10-17 INFLUENZA VACCINE Method [facility] Test 19:39:25 [code = INFLUENZA VACCINE] Future Scheduled 2022-10-17 COVID-19 VACCINE (#1) [facility] Test 19:39:25 [code = COVID-19 VACCINE (#1)] Future Scheduled 2022-10-17 SHINGLES VACCINES (1 Met [facility] Test 19:39:25 of 2) [code = SHINGLES VACCINES (1 of 2)] Future Scheduled 2022-10-17 65+ PNEUMOCOCCAL [facility] Hospital Test 19:39:25 VACCINE (1 - PCV) [code = 65+ PNEUMOCOCCAL VACCINE (1 - PCV)] Future Scheduled 2022-08-08 SHINGLES VACCINES (1 Met [facility] Test 13:33:05 of 2) [code = SHINGLES VACCINES (1 of 2)] Future Scheduled 2022-08-08 65+ [facility] Test 13:33:05 VACCINE (1 - PCV) [code = 65+ PNEUMOCOCCAL VACCINE (1 - PCV)] Future Scheduled 2022-08-08 INFLUENZA VACCINE Method [facility] Test 13:33:05 [code = INFLUENZA VACCINE] Future Scheduled 2022-08-08 HEPATITIS B VACCINES Met [facility] Test 13:33:05 (1 of 3 - 3-dose series) [code = HEPATITIS B VACCINES (1 of 3 - 3-dose series)] Future Scheduled 2022-08-08 COVID-19 VACCINE (#1) [facility] Test 13:33:05 [code = COVID-19 VACCINE (#1)] Future Scheduled 2022-08-08 SHINGLES VACCINES (1 Met [facility] Test 13:33:05 of 2) [code = SHINGLES VACCINES (1 of 2)] Future Scheduled 2022-08-08 65+ PNEUMOCOCCAL [facility] Test 13:33:05 VACCINE (1 - PCV) [code = 65+ PNEUMOCOCCAL VACCINE (1 - PCV)] Future Scheduled 2022-08-08 INFLUENZA VACCINE Method [facility] Test 13:33:05 [code = INFLUENZA VACCINE] Future Scheduled 2022-08-08 HEPATITIS B VACCINES Met [facility] Test 13:33:05 (1 of 3 - 3-dose series) [code = HEPATITIS B VACCINES (1 of 3 - 3-dose series)] Future Scheduled 2022-08-08 COVID-19 VACCINE (#1) [facility] Test 13:33:05 [code = COVID-19 VACCINE (#1)] Encounters Start End Encounter Admission Attending Care Care Encounter Source Date/Time Date/Time Type Type Clinicians Facility Department ID 2022-08-08 [facility] [id number] Common 10:35:03 [facility] 2022-12-11 2022-12-11 Outpatient MHIE MHIE [id number] Memoria 08:15:00 08:15:00 02 yeny Rodriges 2022-12-11 2022-12-11 Outpatient MHIE MHIE [id number] Memoria 08:15:00 08:15:00 02 yeny Rodriges 2022-11-01 2022-11-01 Ambulatory MHIE MNA [id number] Memoria 14:15:00 14:15:00 Pre-Reg Neurology 01 yeny Rodriges 2022-11-01 2022-11-01 Ambulatory MHIE MNA [id number] Memoria 14:15:00 14:15:00 Pre-Reg Neurology 01 yeny Tam Rodriges 2022-11-01 2022-11-01 [id number] 08:15:00 08:15:00 Mak Obregon 2022-09-24 2022-09-24 Ambulatory MHIE MNA [id number] Memoria 16:30:00 16:30:00 Pre-Reg Neurology 00 yeny Rodriges 2022-09-24 2022-09-24 Ambulatory MHIE MNA [id number] Memoria 16:30:00 16:30:00 Pre-Reg Neurology 00 yeny Rodriges 2022-09-24 2022-09-24 Outpatient MHIE MHIE [id number] Memoria 10:30:00 10:30:00 yeny Rodriges 2022-09-24 2022-09-24 Outpatient MHIE MHIE [id number] Memoria 10:30:00 10:30:00 yeny Rodriges 2022-09-24 2022-09-24 Outpatient RYLEY Luna [id number] 10:30:00 10:30:00 Mak Radha Obregon 2022-08-13 2022-08-13 (TEL) STLMLC STLMLC [id number] Co mmon 00:00:00 00:00:00 [facility] 2022-08-13 2022-08-13 (TEL) STLMLC STLMLC [id number] Co mmon 00:00:00 00:00:00 [facility] 2022-08-08 2022-08-08 OFFICE STLM STLMLC [id number] Co mmon 00:00:00 00:00:00 VISIT [facility] PT LEVEL 3 [facility] 2018-08-25 2018-08-26 Outpatient [facility] [id number] Memoria 12:48:25 04:59:59 r [facility] 2018-08-25 2018-08-26 Outpatient [facility] [id number] Memoria 12:48:25 04:59:59 r [facility] 2018-08-25 2018-08-25 Outpatient [facility] [id number] Memoria 07:48:25 23:59:59 r [place]en[address] 2018-08-25 2018-08-25 Outpatient [facility], [id number] 07:48:25 23:59:59 Gilbert Jennings 8 Results This patient has no known results.
[2022-12-07] MEDS ORDERED: LEVALBUTEROL 1.25 MG/3 ML NEB ONE (22:11)
[2022-12-07 22:36] LABS: Absolute Lymphocytes (CBC) 1.3 K/uL (0.7-4.9); Hematocrit 40.8 % (39.6-49.0); MCV 78.9 fL (80-100); MPV 6.8 fL (7.6-11.3); RBC Red Blood Cell Count 5.17 M/uL (4.33-5.43)
[2022-12-07 22:55] LABS: Magnesium 1.7 mg/dL (1.6-2.4); Potassium 4.5 mmol/L (3.5-5.1)
[2022-12-07 23:13] LABS: Blood Morphology Comment NOTED (NOT SEEN); Burr Cells 1+; Ovalocytes 2+; Platelet Estimate INCR
[2022-12-07] MEDS ORDERED: NA CHLORIDE 0.9% 500 ML ONE (23:14)
--- NOTE | 2022-12-07 23:19 | ER ---
Nurse's Notes [facility] Name: Perry Osorio Age: 82 yrs Sex: Male : 1940 Arrival Date: 12/07/2022 Time: 21:50 Bed 3 Private MD: Diagnosis: Severe sepsis without septic shock;Pneumonia, unspecified organism Presentation: 12/07 21:55 Chief complaint: EMS states: Toned out to [facility] for a male with excess aa9 phlegm, nurse on scene reported pt choking on phlegm, pt was released from hospital earlier today with the dx of pneumonia and sepsis. Ebola Screen: No symptoms or risks identified at this time. Initial Sepsis Screen: Does the patient meet any 2 criteria? HR > 90 bpm. Does the patient have a suspected source of infection? Yes: Productive cough/pneumonia. Risk Assessment: Do you want to hurt yourself or someone else? Patient reports no desire to harm self or others. Onset of symptoms was December 07, 2022. 21:55 Method Of Arrival: EMS: [facility] aa9 21:55 Acuity: MARCELO 3 aa9 Triage Assessment: 22:01 General: Appears uncomfortable, unkempt, Behavior is calm, cooperative. Pain: Complains aa9 of pain in chest. Neuro: Level of Consciousness is awake, alert, Oriented to person, place, situation. Cardiovascular: Patient's skin is warm and dry. Rhythm is regular. Respiratory: Airway is patent Respiratory effort is even, unlabored, Sputum is thick, clear. GI: PEG tube in place, clamped. Site clean. : No signs and/or symptoms were reported regarding the genitourinary system. Derm: Skin is intact, is fragile, is thin. 22:02 Respiratory: Reports shortness of breath at rest cough that is productive. aa9 Historical: - Allergies: 22:00 KETAMINE; aa9 22:00 Sulfa (Sulfonamide Antibiotics); aa9 - PMHx: 22:00 Diabetes - NIDDM; High Cholesterol; Hypertension; Myocardial infarction; aa9 - Immunization history:: Adult Immunizations unknown. - Social history:: Smoking status: unknown. Screenin:03 Abuse screen: Denies threats or abuse. Denies injuries from another. Nutritional aa9 screening: On NPO diet. Tuberculosis screening: No symptoms or risk factors identified. Assessment: 23:00 Reassessment: Patient appears in no apparent distress at this time. Neuro: Level of aa9 Consciousness is awake, alert, obeys commands, Oriented to person, place, situation. Respiratory: Airway is patent Respiratory effort is even, unlabored. 23:45 Reassessment: Patient appears in no apparent distress at this time. paged lab for blood aa9 culture collection. 12/08 02:15 Reassessment: Patient appears in no apparent distress at this time. Patient and/or aa9 family updated on plan of care and expected duration. Pain level reassessed. Patient is alert, oriented x 3, equal unlabored respirations, skin warm/dry/pink. Vital Signs: 12/07 21:55 BP 134 / 78; Pulse 94; Resp 17 S; Temp 97.9(O); Pulse Ox 97% ; Weight 68.04 kg (R); aa9 Height 5 ft. 9 in. (175.26 cm) (R); 22:30 BP 148 / 85; Pulse 115; Resp 20; Pulse Ox 97% on Nebulizer Mask; aa9 21:55 Body Mass Index 22.15 (68.04 kg, 175.26 cm) aa9 ED Course: 21:50 Patient arrived in ED. tw5 21:51 Mynor Hernandez MD is Attending Physician. jr11 21:55 Ki Cavanaugh PA is PHCP. cp 22:00 Triage completed. aa9 22:02 Arm band placed on. aa9 22:03 Patient has correct armband on for positive identification. Placed in gown. Bed in low aa9 position. Call light in reach. Side rails up X 1. Side rails up X2. Client placed on continuous cardiac and pulse oximetry monitoring. NIBP monitoring applied. 22:38 XRAY Chest (1 view) In Process Unspecified. EDMS 23:00 Inserted saline lock: 20 gauge in left forearm, using aseptic technique. aa9 23:06 Arlet Dai RN is Primary Nurse. aa9 23:17 Moise Stone MD is Hospitalizing Provider. cp 23:23 Jered Mantilla MD is Hospitalizing Provider. cp 23:45 SARS RAPID Sent. aa9 23:46 Missed attempt(s): 22 gauge in right forearm. aa9 12/08 00:27 Thorax Wo Con In Process Unspecified. EDMS 01:18 No provider procedures requiring assistance completed. Patient admitted, IV remains in aa9 place. 01:37 Lactate w/ 2H reflex if indic. Sent. aa9 Administered Medications: 12/07 22:12 Drug: Xopenex (levalbuterol) (3) 1.25 mg Route: Inhalation; aa9 23:06 Follow up: Response: No adverse reaction aa9 23:17 Drug: NS 0.9% 500 ml Route: IV; Rate: bolus; Site: left forearm; aa9 04 01:37 Follow up: IV Status: Completed infusion; IV Intake: 500ml aa9 00:46 Drug: Cefepime 1 grams Route: IVPB; Rate: 200 ml/hr; Infused Over: 30 mins; Site: left aa9 forearm; 01:37 Follow up: Response: No adverse reaction; IV Status: Completed infusion; IV Intake: aa9 100ml 01:05 Drug: Lasix (furosemide) 20 mg Route: IVP; Site: left forearm; aa9 02:15 Follow up: Response: No adverse reaction aa9 01:38 Drug: vancoMYCIN 1 grams Route: IVPB; Infused Over: 2 hrs; Site: left forearm; aa9 02:15 Follow up: Response: No adverse reaction; IV Status: Infusion continued upon admission aa9 Medication: 02:15 VIS not applicable for this client. aa9 Intake: 01:37 IV: 100ml; Total: 100ml. aa9 01:37 IV: 500ml; Total: 600ml. aa9 Outcome: 12/07 23:18 Decision to Hospitalize by Provider. cp 12/08 01:18 Admitted to Med/surg accompanied by kush, via stretcher, room 425, with chart, Report aa9 called to Andrew SABA Condition: stable Instructed on the need for admit. 02:15 Patient left the ED. aa9 Signatures: Dispatcher [employer] EDWY Ki Cavanaugh PA PA cp Wood, Tiffany tw5 Mynor Hernandez MD MD jr11 Arlet Dai, RN RN aa9
--- NOTE | 2022-12-07 23:19 | EDPHYS ---
Physician Documentation [facility] Name: Perry Osorio Age: 82 yrs Sex: Male : 1940 Arrival Date: 12/07/2022 Time: 21:50 Bed 3 Private MD: ED Physician Mynor Hernandez HPI: 12/07 22:00 This 82 yrs old Male presents to ER via EMS with complaints of General cp Weakness. 22:00 The patient or guardian reports cough, congestion. cp 22:00 Associated signs and symptoms: Pertinent positives: general weakness, Pertinent cp negatives: chest pain, diarrhea, fever, vomiting. The patient has been recently been admitted at [facility], was discharged earlier today. Historical: - Allergies: 22:00 KETAMINE; aa9 22:00 Sulfa (Sulfonamide Antibiotics); aa9 - PMHx: 22:00 Diabetes - NIDDM; High Cholesterol; Hypertension; Myocardial infarction; aa9 - Immunization history:: Adult Immunizations unknown. - Social history:: Smoking status: unknown. ROS: 22:05 Constitutional: Positive for poor PO intake, Negative for fever. cp 22:05 Eyes: Negative for injury, pain, redness, and discharge. cp 22:05 ENT: Negative for drainage from ear(s), ear pain, sore throat, difficulty swallowing, difficulty handling secretions. 22:05 Cardiovascular: Negative for chest pain, edema. 22:05 Respiratory: Positive for cough, "sounds productive", shortness of breath, Negative for wheezing. 22:05 Abdomen/GI: Negative for abdominal pain, vomiting, diarrhea, constipation. 22:05 : Negative for urinary symptoms. 22:05 Neuro: Positive for weakness, Negative for altered mental status, dizziness, headache, numbness, syncope. 22:05 All other systems are negative. Exam: 22:10 Constitutional: The patient appears in no acute distress, alert, awake, cp non-diaphoretic, non-toxic, well developed, well nourished. 22:10 Head/Face: Normocephalic, atraumatic. cp 22:10 Eyes: Periorbital structures: appear normal, Pupils: equal, round, and reactive to light and accomodation, Extraocular movements: intact throughout, Conjunctiva: normal, no exudate, no injection, Sclera: no appreciated abnormality, Lids and lashes: appear normal, bilaterally. 22:10 ENT: External ear(s): are unremarkable, Nose: is normal, Mouth: Lips: dry, Oral mucosa: moist, Posterior pharynx: is normal, airway is patent, no erythema, no exudate. 22:10 Neck: ROM/movement: is normal, is supple, without pain, no range of motions limitations, no meningismus. 22:10 Chest/axilla: Inspection: normal, Palpation: is normal, no crepitus, no tenderness. 22:10 Cardiovascular: Rate: normal, Rhythm: regular, Edema: is not appreciated, JVD: is not appreciated. 22:10 Respiratory: the patient does not display signs of respiratory distress, Respirations: labored breathing, is not present, shallow respirations, that is mild, Breath sounds: decreased breath sounds, are not appreciated, stridor, is not appreciated, + upper airway congestion. wheezing: is not appreciated. 22:10 Abdomen/GI: Inspection: abdomen appears normal, Bowel sounds: active, all quadrants, Palpation: abdomen is soft and non-tender, in all quadrants. 22:10 Back: pain, is absent, ROM is normal. 22:10 Skin: cellulitis, is not appreciated, no rash present. 22:10 Neuro: Orientation: to person, place, situation, Mentation: able to follow commands, slow to respond, Motor: moves all fours, general weakness with no focal deficits. 22:18 ECG was reviewed by the Attending Physician. cp Vital Signs: 21:55 BP 134 / 78; Pulse 94; Resp 17 S; Temp 97.9(O); Pulse Ox 97% ; Weight 68.04 kg (R); aa9 Height 5 ft. 9 in. (175.26 cm) (R); 22:30 BP 148 / 85; Pulse 115; Resp 20; Pulse Ox 97% on Nebulizer Mask; aa9 21:55 Body Mass Index 22.15 (68.04 kg, 175.26 cm) aa9 MDM: 22:00 Differential diagnosis: bronchitis, flu, sepsis, UTI, respiratory failure. cp 23:18 Patient medically screened. cp 23:35 Data reviewed: vital signs, nurses notes, lab test result(s), EKG, radiologic studies, cp plain films. 23:35 ED course: patient qualifies for severe sepsis. A) pneumonia as source of infection. B) SIRS criteria: WBC of 13, HR of 94. C) lactate of 3.6. 23:50 I considered the following discharge prescriptions or medication management in the emergency department Medications were administered in the Emergency Department. See MAR. 23:50 Independent interpretation of the following test(s) in the Emergency Department EKG: cp See my EKG interpretation above X-Ray: My interpretation is chest xray shows concern for pneumonia left lung. 23:50 Consideration of Admission/Observation Patient was admitted/placed on observation. Management of patient was discussed with the following: Hospitalist: Keith Harris, FILE SYSTEM INSTALLER will admit after discussion. Counseling: I had a detailed discussion with the patient and/or guardian regarding: the historical points, exam findings, and any diagnostic results supporting the discharge/admit diagnosis, lab results, radiology results, the need for further work-up and treatment in the hospital. 12/07 21:56 Order name: Basic Metabolic Panel; Complete Time: 22:58 12/07 22:58 Interpretation: Normal except: NA 134; GLUC 130; CRE 0.50; CA 9.3. 12/07 21:56 Order name: CBC with Diff; Complete Time: 23:16 12/07 22:58 Interpretation: Normal except: WBC 13.00; HGB 13.0; MCV 78.9; MCH 25.2; MCHC 31.9; PLT cp 408; RDW 16.5; MPV 6.8; TORO% 80.8; LYM% 10.0; NEUT A 10.5. 12/07 21:56 Order name: Magnesium; Complete Time: 23:15 12/07 21:56 Order name: NT PRO-BNP; Complete Time: 22:58 cp 12/07 22:58 Interpretation: Abnormal: NT PRO-BNP 6396. 12/07 21:56 Order name: Troponin HS; Complete Time: 23:15 12/07 21:56 Order name: Lactate w/ 2H reflex if indic.; Complete Time: 22:58 12/07 22:58 Interpretation: Abnormal: LAC 3.6. 12/07 21:56 Order name: XRAY Chest (1 view) 12/07 22:39 Order name: Manual Differential; Complete Time: 23:16 EDMS 12/07 23:16 Interpretation: Normal except: MONO 11. cp 02 23:13 Order name: Procalcitonin; Complete Time: 00:53 cp 12/07 23:13 Order name: Urine Microscopic Only cp 12/07 23:13 Order name: Blood Culture Adult (2) cp 12/07 23:22 Order name: SARS RAPID; Complete Time: 00:53 la1 12/08 00:55 Order name: Lactate w/ 2H reflex if indic. cp 12/08 02:01 Order name: Lactate w/ 2H reflex if indic. EDMS 12/07 21:56 Order name: EKG; Complete Time: 22:19 cp 12/07 21:56 Order name: Cardiac monitoring; Complete Time: 22:42 cp 12/07 21:56 Order name: EKG - Nurse/Tech; Complete Time: 22:42 cp 12/07 21:56 Order name: IV Saline Lock; Complete Time: 22:42 cp 12/07 21:56 Order name: Labs collected and sent; Complete Time: 22:42 cp 12/07 21:56 Order name: O2 Per Protocol; Complete Time: 22:42 cp 12/07 21:56 Order name: O2 Sat Monitoring; Complete Time: 22:42 cp 12/07 23:19 Order name: Chest Wo Con CT la1 12/07 23:46 Order name: Thorax Wo Con EDMS EC:18 Rate is 92 beats/min. Rhythm is regular. LA interval is normal. QRS interval is normal. cp QT interval is normal. T waves are Inverted in lead aVR. Interpreted by me. Reviewed by me. Administered Medications: 22:12 Drug: Xopenex (levalbuterol) (3) 1.25 mg Route: Inhalation; aa9 23:06 Follow up: Response: No adverse reaction aa9 23:17 Drug: NS 0.9% 500 ml Route: IV; Rate: bolus; Site: left forearm; aa9 12/08 01:37 Follow up: IV Status: Completed infusion; IV Intake: 500ml aa9 00:46 Drug: Cefepime 1 grams Route: IVPB; Rate: 200 ml/hr; Infused Over: 30 mins; Site: left aa9 forearm; 01:37 Follow up: Response: No adverse reaction; IV Status: Completed infusion; IV Intake: aa9 100ml 01:05 Drug: Lasix (furosemide) 20 mg Route: IVP; Site: left forearm; aa9 02:15 Follow up: Response: No adverse reaction aa9 01:38 Drug: vancoMYCIN 1 grams Route: IVPB; Infused Over: 2 hrs; Site: left forearm; aa9 02:15 Follow up: Response: No adverse reaction; IV Status: Infusion continued upon admission aa9 Disposition: 03:04 I reviewed the patient's care provided by Advanced Practice Provider \\T\\ agree w/ the [place] diagnosis \\T\\ care plan. I personally saw the pt \\T\\ performed a substantive portion of the visit, incldng all aspects of the (History/Exam/Medical Decision Making). Disposition Summary: 12/07/22 23:18 Hospitalization Ordered Hospitalization Status: Inpatient Admission [facility] cp Condition: Fair cp Problem: an ongoing problem cp Symptoms: have improved cp Bed/Room Type: Standard cp Provider: Jered Mantilla(12/07/22 23:23) cp Room Assignment: [facility](12/08/22 00:54) cg Diagnosis - Severe sepsis without septic shock cp - Pneumonia, unspecified organism cp Forms: - Medication Reconciliation Form cp - SBAR form cp Signatures: Dispatcher [employer] EDMS Keith Harris, SUZ[employer] TELEGRAPH MECHANIC-Cla1 Ki Cavanaugh PA PA cp Eliana Rodriges, RN RN cg Mynor Hernandez MD MD jr11 Arlet Dai RN RN aa9 Corrections: (The following items were deleted from the chart) 12/07 23:23 23:18 Moise Sotne cp cp 12/08 00:54 12/07 23:18 cp cg
[2022-12-08 00:26] LABS: SARS-CoV-2 Antigen Rapid Res Negative (Negative)
[2022-12-08] MEDS ORDERED: NA CHLORIDE 0.9% 250 ML ONE ×2 (00:26→03:58)
[2022-12-08] MEDS ORDERED: VANCOMYCIN 1 GM/VIAL ONE (00:26)
[2022-12-08] MEDS ORDERED: NA CHLORIDE 0.9% 100 ML ONE (00:26)
[2022-12-08] MEDS ORDERED: CEFEPIME 1 GM/VIAL ONE (00:26)
[2022-12-08] MEDS ORDERED: FUROSEMIDE 20 MG/ 2ML VIAL ONE (01:00)
--- NOTE | 2022-12-08 01:13 | P.HP ---
Certification for Inpatient Patient admitted to: Inpatient With expected LOS: >2 Midnights Patient will require the following post-hospital care: None Practitioner: I am a practitioner with admitting privileges, knowledge of patient current condition, hospital course, and medical plan of care. Services: Services provided to patient in accordance with Admission requirements found in Title 42 Section 412.3 of the Code of Federal Regulations <Keith Harris - Last Filed: 12/08/22 01:07> Patient History Date of Service: 12/08/22 Reason for admission: Severe sepsis, pleural effusion History of Present Illness: 82-year-old male with history of vso-rogbcrv-cwguzgeod diabetes, hypertension, hyperlipidemia, hypothyroidism, GERD, CAD, BPH, dysphagia status post PEG tube insertion and recent hospitalization for sepsis, pneumonia who was [facility] on 12/07/[facility] presents to the emergency department for dyspnea, choking episode. At the jail he reportedly coughed up some thick sputum and then began to choke on it, nursing staff grew concerned and sent him to the emergency department for evaluation. He was evaluated here in the emergency department his labs were significant for leukocytosis with also count 13, was 12.5 at discharge, lactic acid 3.6, BNP 6396 CT chest was obtained which rev ealed unchanged large right pleural effusion, slightly increased patchy pulmonary opacities on the left which could represent pulmonary edema versus pneumonia. Patient currently on room air, ED provider wishes to admit for further evaluation and management of dyspnea, pleural effusion, suspected pneumonia/severe sepsis. - Past Medical/Surgical History -: Diabetes mellitus type 2 -: Hypertension -: Hyperlipidemia -: Hypothyroidism -: Dysphagia -: Throat [id number] -: Lung cancer -: triple bypass -: Appendicectomy Psychosocial/ Personal History: Patient resides at [facility] since 2021 - Social History Smoking Status: Never smoker Alcohol use: No CD- Drugs: No Caffeine use: No Place of Residence: Home <Keith Harris - Last Filed: 12/08/22 01:07> Date of Service: 12/08/22 <Jered Mantilla - Last Filed: 12/08/22 23:03> Allergies ketamine Allergy (Unknown, Verified 12/05/22 04:38) Anaphylaxis Sulfa (Sulfonamide Antibiotics) Allergy (Unknown, Verified 12/05/22 04:37) Anaphylaxis Home Medications: Atorvastatin Calcium [Lipitor*] 20 mg PO BEDTIME 12/04/22 Clopidogrel Bisulfate [Plavix*] 75 mg PO DAILY 12/04/22 Metformin HCl [Glucophage*] 1,000 mg PO BIDWM 12/04/22 Mirtazapine [Remeron*] 15 mg PO BEDTIME 12/04/22 Sertraline [Zoloft*] 50 mg PO DAILY 12/04/22 Arformoterol Tartrate [Brovana] 15 mcg IH BID 30 Days #120 ml 12/06/22 Amox/Clavulanate [Augmentin 875-125 Tab] 875 mg FT BID 5 Days #10 tab 12/07/22 Glucerna 1.5 Raoul 237 ml FT QID bot 12/07/22 Pantoprazole Granules [Protonix Granules*] 40 mg FT DAILY 30 Days #30 packet 12/07/22 predniSONE [Deltasone*] 10 mg FT DAILY 4 Days #4 tab 12/07/22 Review of Systems 10-point ROS is otherwise unremarkable Respiratory: Cough, Shortness of Breath, Sputum <Keith Harris - Last Filed: 12/08/22 01:07> Physical Examination - Physical Exam General: Alert, In no apparent distress, Oriented x3 HEENT: Atraumatic, PERRLA, Mucous membr. moist/pink, EOMI, Sclerae nonicteric Neck: Supple, 2+ carotid pulse no bruit, No LAD, Without JVD or thyroid abnormality Respiratory: Crackles/rales Cardiovascular: Regular rate/rhythm, Normal S1 S2 Capillary refill: <2 Seconds Gastrointestinal: Normal bowel sounds, No tenderness, Other (peg tube in place) Musculoskeletal: No tenderness Integumentary: No rashes Neurological: Normal speech, Normal strength at 5/5 x4 extr, Normal tone, Normal affect - Studies Laboratory Data (last 24 hrs) 12/07/22 22:23: WBC 13.00 H, Hgb 13.0 L D, Hct 40.8, Plt Count 408 H 12/07/22 22:23: Sodium 134 L, Potassium 4.5, BUN 10, Creatinine 0.50 L, Glucose 130 H, Magnesium 1.7 <Keith Harris - Last Filed: 12/08/22 01:07> - Studies Laboratory Data (last 24 hrs) 12/07/22 22:23: Sodium 134 L, Potassium 4.5, BUN 10, Creatinine 0.50 L, Glucose 130 H, Magnesium 1.7 Microbiology Data (last 24 hrs): 12/08/22 00:10 Blood - Blood Anaerobic Blood Culture - Final 12/08/22 00:05 Blood - Blood Anaerobic Blood Culture - Final <Jered Mantilla - Last Filed: 12/08/22 23:03> Assessment and Plan - Plan Assessment: Severe sepsis secondary to left-sided pneumonia-concern for possible healthcare associated pneumonia Dyspnea secondary to above, large right pleural effusion Dysphagia status post PEG tube insertion Diabetes mellitus type 2bjo-cllmvbk-susqkjnvo hypertension Hyperlipidemia Hypothyroidism GERD CAD BPH Plan: Severe sepsis secondary to left-sided pneumonia-concern for possible healthcare associated pneumonia Patient with recent hospitalization, CT shows increasing patchy pulmonary opacities on the left which could represent pneumonia versus pulmonary edema. Started on vancomycin/cefepime in emergency department also given gentle diuresis with Lasix. Pulmonology to be consulted, blood and sputum cultures ordered. Dyspnea secondary to above, large right pleural effusion Continue as above, pulmonology consult in place. Dysphagia status post PEG tube insertion Noted, strict n.p.o., continue tube feeds Diabetes mellitus type 8adl-vwdhsii-lofpkuhts ACHS Accu-Chek, sliding scale insulin hypertension Hyperlipidemia Hypothyroidism GERD CAD BPH Continue home medications DVT PPX: Lovenox Code status:full Discharge Plan: Home Plan to discharge in: 72 Hours - Advance Directives Does patient have a Living Will: No Does patient have a Durable POA for Healthcare: Yes - Code Status/Comfort Care Code Status Assessed: Yes (Full code) Critical Care: No Time Spent Managing Pts Care (In Minutes): 70 <Keith Harris - Last Filed: 12/08/22 01:07> - Plan patient presented back to hospital after choking episode noted to have worsenning leukocytosis;; on steroids Abx broadened large effusion, may possibly need tap pulm consulted <Jered Mantilla - Last Filed: 12/08/22 23:03>
[2022-12-08 02:02] LABS: Urine Bacteria <20 /HPF (<20); Urine Mucus Slight /HPF (None Seen); Urine RBC <5 /HPF (None Seen)
[2022-12-08] MEDS ORDERED: ACETAMINOPHEN 650MG/RECT SUPP PR PRN (02:18)
[2022-12-08] MEDS ORDERED: ONDANSETRON 4 MG/2 ML VIAL IV PRN (02:18)
[2022-12-08 02:31] VITALS: BMI 20.4
[2022-12-08] MEDS ORDERED: VANCOMYCIN 750 MG in NA CHLORIDE 0.9% 150 ML IVPB ONE ×2 (03:00→04:00)
[2022-12-08] MEDS: IPRATROPIUM BROM 0.5MG/2.5ML NEB SCH ×4 (03:00→19:35)
[2022-12-08] MEDS: ALBUTEROL 2.5 MG/3 ML NEB SOL NEB PRN (03:00)
[2022-12-08] MEDS ORDERED: VANCOMYCIN 500 MG/VIAL ONE (03:37)
[2022-12-08] MEDS ORDERED: VANCOMYCIN 750 MG in NA CHLORIDE 0.9% 250 ML IVPB ONE (04:00)
[2022-12-08 04:14] LABS: Hematocrit 42.9 % (39.6-49.0); Lymphocytes % 6.2 % (15.3-44.8); MCV 78.8 fL (80-100); MPV 7.6 fL (7.6-11.3); RBC Red Blood Cell Count 5.45 M/uL (4.33-5.43)
[2022-12-08 04:16] LABS: Potassium 3.7 mmol/L (3.5-5.1)
[2022-12-08] MEDS: CEFEPIME 1 GM in NA CHLORIDE 0.9% 100 ML IV SCH ×2 (09:25→22:52)
[2022-12-08] MEDS: ENOXAPARIN 40 MG/0.4 ML SQ SCH (09:25)
[2022-12-08] MEDS: FUROSEMIDE 20 MG/ 2ML VIAL IV SCH ×2 (09:26→17:39)
[2022-12-08] MEDS: GLUCERNA 1.5 CAL 1,000 ML BOT FT SCH ×4 (09:28→21:00)
[2022-12-08] MEDS ORDERED: SODIUM CHLORIDE 0.9% 10ML INJ IV PRN (10:26)
[2022-12-08] MEDS: PANTOPRAZOLE 40 MG INJ IVP SCH (10:51)
[2022-12-08] MEDS ORDERED: VANCOMYCIN 1 GM in NA CHLORIDE 0.9% 250 ML IVPB SCH ×2 (14:00→18:00)
[2022-12-08] MEDS: VANCOMYCIN 1 GM in NA CHLORIDE 0.9% 250 ML IVPB SCH (20:38)
[2022-12-09] MEDS: IPRATROPIUM BROM 0.5MG/2.5ML NEB SCH ×2 (01:05→08:13)
[2022-12-09] MEDS ORDERED: VANCOMYCIN 1.25 GM in NA CHLORIDE 0.9% 250 ML IVPB SCH (04:00)
[2022-12-09 05:34] LABS: Absolute Lymphocytes (CBC) 0.8 K/uL (0.7-4.9); Hematocrit 34.4 % (39.6-49.0); Lymphocytes % 8.7 % (15.3-44.8); MCV 78.2 fL (80-100)
[2022-12-09 05:53] LABS: Magnesium 1.7 mg/dL (1.6-2.4); Potassium 3.3 mmol/L (3.5-5.1)
[2022-12-09] MEDS: GLUCERNA 1.5 CAL 1,000 ML BOT FT SCH ×4 (07:30→21:00)
[2022-12-09] MEDS: ENOXAPARIN 40 MG/0.4 ML SQ SCH (09:36)
[2022-12-09] MEDS: FUROSEMIDE 20 MG/ 2ML VIAL IV SCH ×2 (09:36→17:45)
[2022-12-09] MEDS: PANTOPRAZOLE 40 MG INJ IVP SCH (09:36)
[2022-12-09] MEDS: CEFEPIME 1 GM in NA CHLORIDE 0.9% 100 ML IV SCH ×2 (09:37→21:00)
--- NOTE | 2022-12-09 10:33 | P.CNS ---
Date of Consult: 12/09/22 Reason for Consult: Respiratory distress pleural effusion Chief Complaint: Severe sepsis, pleural effusion History of Present Illness: Patient is 82 years of age metabolic syndrome recently had a PEG tube placed him back to the emergency room complaining of dyspnea choking spells complaining of problem with his throat coughing up some thick sputum he has a pretty significant effusion on the right side with leukocytosis Allergies ketamine Allergy (Unknown, Verified 12/05/22 04:38) Anaphylaxis Sulfa (Sulfonamide Antibiotics) Allergy (Unknown, Verified 12/05/22 04:37) Anaphylaxis Home Medications: Atorvastatin Calcium [Lipitor*] 20 mg PO BEDTIME 12/04/22 Clopidogrel Bisulfate [Plavix*] 75 mg PO DAILY 12/04/22 Metformin HCl [Glucophage*] 1,000 mg PO BIDWM 12/04/22 Mirtazapine [Remeron*] 15 mg PO BEDTIME 12/04/22 Sertraline [Zoloft*] 50 mg PO DAILY 12/04/22 Arformoterol Tartrate [Brovana] 15 mcg IH BID 30 Days #120 ml 12/06/22 Amox/Clavulanate [Augmentin 875-125 Tab] 875 mg FT BID 5 Days #10 tab 12/07/22 Glucerna 1.5 Raoul 237 ml FT QID bot 12/07/22 Pantoprazole Granules [Protonix Granules*] 40 mg FT DAILY 30 Days #30 packet 12/07/22 predniSONE [Deltasone*] 10 mg FT DAILY 4 Days #4 tab 12/07/22 - Past Medical/Surgical History -: Diabetes mellitus type 2 -: Hypertension -: Hyperlipidemia -: Hypothyroidism -: Dysphagia -: Throat [id number] -: Lung cancer -: triple bypass -: Appendicectomy Psychosocial/ Personal History: Patient resides at [facility] since 2021 - Social History Smoking Status: Unknown if ever smoked Alcohol use: No CD- Drugs: No Caffeine use: No Place of Residence: [facility] Review of Systems is unable to be obtained Physical Examination Temp Pulse Resp BP Pulse Ox 97.7 F 100 H 18 132/71 98 12/09/22 08:00 12/09/22 08:00 12/09/22 08:00 12/09/22 08:00 12/09/22 08:00 General: In no apparent distress, Cooperative Respiratory: Diminished (Diminished on the right side) Cardiovascular: No edema, Normal S1 S2 Gastrointestinal: Normal bowel sounds, Soft and benign, Non-distended - Problems (1) Pleural effusion Current Visit: Yes Status: Acute Plan: Patient is 82 years of age was recently discharged admitted yet again with shortness of breath he has a progressive right-sided pleural effusion with an elevated white count need large-volume thoracentesis lactic acid is elevated procalcitonin level is negative White count is declining is complaining problems with his throat vital signs stable no fever he has a PEG tube pleural effusion was present on previous admission looks like it is worse
[2022-12-09] MEDS: PHENOL 1.4% ORAL SPRAY 180ML MM PRN ×2 (12:39→19:56)
[2022-12-09] MEDS: VANCOMYCIN 1 GM in NA CHLORIDE 0.9% 250 ML IVPB SCH (13:55)
--- NOTE | 2022-12-09 13:57 | RAD REPORT ---
EXAM DESCRIPTION: RAD - Chest Single View - 12/09/2022 1:11 pm CLINICAL HISTORY: f/u pleural effusion, aspiration COMPARISON: Portable chest 12/07/2022, CT chest December 07 TECHNIQUE: AP portable chest image was obtained 12/09/2022 1:11 pm . FINDINGS: Moderately large right pleural effusion is present occupying much is 50% of the right narinder thorax. Right lung field atelectasis changes are present. Trachea remains in the midline. Pleural flu id is similar to the December 07 examination. Left lung field is clear. No left-sided pleural effusion identified. Cardiomediastinal silhouette is stable. No measurable pleural effusion and no pneumothorax. No acute bony abnormality seen. No acute aortic findings suspected. IMPRESSION: Large right pleural effusion stable from December 07 imaging.
--- NOTE | 2022-12-09 13:58 | RAD REPORT ---
EXAM DESCRIPTION: RAD - Chest Lateral Decubitus - 12/09/2022 1:11 pm CLINICAL HISTORY: Right-sided pleural effusion COMPARISON: Portable chest 12/09/2022 TECHNIQUE: Right and left lateral decubitus films were obtained. FINDINGS: Large right side pleural effusion is seen to layer. No left-sided layering pleural effusio n. No other significant findings or interval changes. IMPRESSION: Layering large right pleural effusion.
[2022-12-09] MEDS: ALBUTEROL 2.5 MG/3 ML NEB SOL NEB PRN (14:40)
--- NOTE | 2022-12-09 17:44 | P.PN ---
Date of Service: 12/09/22 Subjective: improving reports sore throat, asking for medication afebrile, leukocytosi resolved ROS: 10 point ROS as noted above, otherwise negative Physical exam GEN: Alert, oriented, NAD; weak voice HEENT: Normal conjunctiva, sclera anicteric CV: Regular rate and rhythm, no edema Pulm: Nonlabored respirations on 2L NC, +cough, diminished R>L ABD: Soft, nontender, nondistended, PEG in place Neuro: normal affect, lower extremity weakness Problem List Severe sepsis secondary to bilateral pneumonia-concern for aspiration Dysphagiahistory of throat cancer Diabetes mellitus type 2, non-insulin dependent Hypertension Hyperlipidemia Hypothyroidism GERD CAD BPH hypocalcemia, hypomagnesemia, hypokalemia Severe sepsis secondary to bilateral pneumonia-concern for aspiration Cqafjqxszrympxj2x of throat cancer previously on zosyn and dc'd on augmentin upon return, placed on vanc/cefepime, lactate > 4; improved suspect aspiration and hypoxia pulm consulted - for input again on thoracentesis recommends thoracentesis; ordered for tomorrow continue PEG tube / tube feeds strict NPO for now Diabetes mellitus type 2 sliding scale, long acting as appropriate Hypertension Hyperlipidemia Hypothyroidism GERD CAD BPH continue home meds as appropriate via PEG VTE: Lovenox held, SCDs ordered Code: Full Dispo: back to longterm, ~2-3 days thoracentesis ordered for tomorrow
[2022-12-09] MEDS: MELATONIN 5 MG TABLET PO PRN (21:04)
[2022-12-10 03:42] LABS: Absolute Lymphocytes (CBC) 0.7 K/uL (0.7-4.9); Hematocrit 34.6 % (39.6-49.0); MCV 78.4 fL (80-100); MPV 7.4 fL (7.6-11.3); RBC Red Blood Cell Count 4.41 M/uL (4.33-5.43)
[2022-12-10 04:01] LABS: Potassium 3.2 mmol/L (3.5-5.1)
[2022-12-10] MEDS: PHENOL 1.4% ORAL SPRAY 180ML MM PRN ×4 (04:36→20:01)
[2022-12-10] MEDS: ALBUTEROL 2.5 MG/3 ML NEB SOL NEB PRN (04:45)
--- NOTE | 2022-12-10 07:04 | P.PN ---
Date of Service: 12/10/22 Subjective: short of breath sore throat thoracentesis today ROS: 10 point ROS as noted above, otherwise negative Physical exam GEN: Alert, oriented, NAD; weak voice HEENT: Normal conjunctiva, sclera anicteric CV: Regular rate and rhythm, no edema Pulm: Nonlabored respirations on 2L NC, +cough, diminished R>L ABD: Soft, nontender, nondistended, PEG in place Neuro: normal affect, lower extremity weakness Problem List Severe sepsis secondary to bilateral pneumonia-concern for aspiration Dysphagiahistory of throat cancer Diabetes mellitus type 2, non-insulin dependent Hypertension Hyperlipidemia Hypothyroidism GERD CAD BPH hypocalcemia, hypomagnesemia, hypokalemia Severe sepsis secondary to bilateral pneumonia-concern for aspiration [id number] of throat cancer previously on zosyn and dc'd on augmentin upon return, placed on vanc/cefepime, lactate > 4; improved suspect aspiration and hypoxia pulm consulted - for input again on thoracentesis recommends thoracentesis; ordered for today continue PEG tube / tube feeds strict NPO for now Diabetes mellitus type 2 sliding scale, long acting as appropriate Hypertension Hyperlipidemia Hypothyroidism GERD CAD BPH continue home meds as appropriate via PEG VTE: Lovenox held, SCDs ordered Code: Full Dispo: back to [facility], ~1-2 days
[2022-12-10] MEDS ORDERED: CEFEPIME 1 GM/VIAL ONE (07:59)
[2022-12-10] MEDS: VANCOMYCIN 1 GM in NA CHLORIDE 0.9% 250 ML IVPB SCH (08:00)
[2022-12-10] MEDS ORDERED: NA CHLORIDE 0.9% 100 ML ONE (08:02)
[2022-12-10] MEDS: FUROSEMIDE 20 MG/ 2ML VIAL IV SCH ×2 (08:33→17:22)
[2022-12-10] MEDS: PANTOPRAZOLE 40 MG INJ IVP SCH (08:33)
[2022-12-10] MEDS: GLUCERNA 1.5 CAL 1,000 ML BOT FT SCH ×5 (08:34→20:02)
[2022-12-10] MEDS: CEFEPIME 1 GM in NA CHLORIDE 0.9% 100 ML IV SCH ×2 (08:47→20:01)
[2022-12-10] MEDS ORDERED: VANCOMYCIN 1 GM in NA CHLORIDE 0.9% 250 ML IVPB SCH (09:00)
--- NOTE | 2022-12-10 10:21 | RAD REPORT ---
EXAM DESCRIPTION: RAD - Chest Single View - 12/07/2022 10:36 pm CLINICAL HISTORY: Cough. COMPARISON: None. TECHNIQUE: Single view AP chest radiograph(s). FINDINGS: Opacification of the mid to right hemithorax. No pneumothorax. Nonenlarged cardiomediastin al silhouette. Median sternotomy wires. IMPRESSION: Opacification of the mid to right hemithorax, possibly a combination of pleural fluid an d pulmonary opacification. Electronically signed by: Mindy Babb MD 12/07/2022 10:57 PM GORE MAKER Due to temporary technical issues with the PACS/Fluency reporting system, reports are being signed by the in house radiologists without review as a courtesy to insure prompt reporting. The interpreting radiologist is fully responsible for the content of the report.
--- NOTE | 2022-12-10 10:45 | RAD REPORT ---
EXAM DESCRIPTION: CT - Thorax Wo Evens - 12/08/2022 6:40 am CLINICAL HISTORY: Pneumonia, effusion or abscess suspected. COMPARISON: Chest radiograph from today. CTA of the chest from December 04, 2022. TECHNIQUE: CT of the chest was performed without contrast. Axial, coronal, and sagittal reconstructi ons were created and sent to PACS. This exam was performed according to our departmental dose-optimization program, which includes autom ated exposure control, adjustment of the mA and/or kV according to patient size and/or use of iterati ve reconstruction technique. FINDINGS: Lungs and pleura: No significant interval change in the large right-sided pleural effusion with adjacent compressive atelectasis. No evidence of pulmonary abscess or empyema. Faint multifocal groundglass opacities with associated interstitial thickening throughout the left lung, some of whic h are increased from prior, such as in the left upper lobe. No pneumothorax. Mediastinum and neck: No mediastinal lymphadenopathy by CT size criteria. Unremarkable appearance of the thyroid gland. Cardiovascular: No cardiomegaly or pericardial effusion. No thoracic aortic aneurysm. Large amount of coronary artery calcifications, status post CABG. Moderate aortic calcific atherosclerosis. Abdomen: No significant upper abdominal abnormality identified. Musculoskeletal: No concerning osseous abnormality. IMPRESSION: 1. Unchanged large right-sided pleural effusion. 2. Slightly increased patchy pulmonary opacities on the left, which could represent pneumonia versu s pulmonary edema. Electronically signed by: Mindy Babb MD 12/08/2022 12:39 AM HAND SPLITTER Due to temporary technical issues with the PACS/Fluency reporting system, reports are being signed by the in house radiologists without review as a courtesy to insure prompt reporting. The interpreting radiologist is fully responsible for the content of the report.
--- NOTE | 2022-12-10 11:33 | RAD REPORT ---
EXAM DESCRIPTION: US - Thoracentesis w/ US Guide - 12/10/2022 10:21 am CLINICAL HISTORY: Pleural effusion. large pleural effusion; Dx/Tx COMPARISON: No comparisons FINDINGS: Preoperative diagnosis: Right pleural effusion Post operative diagnosis: Same Conscious Sedation: None. Estimated blood loss: Minimal Specimens:A small volume of fluid was sent for requested lab studies. The patient was placed in the upright recumbent position and the right posterior back was prepped and draped in the usual sterile fashion. 1% Lidocaine was infiltrated into the soft tissues for local a nesthesia. Under sonographic guidance, a thoracentesis needle and 6 Macedonian catheter was advanced int o the right pleural space. Approximately 1.6 liters yellow fluid was aspirated. Samples were sent to pathology for requested analysis. The patient tolerated the procedure without immediate complication and transferred to the floor in stable condition. IMPRESSION: Successful ultrasound-guided thoracentesis as detailed.
[2022-12-10] MEDS ORDERED: ALBUTEROL 2.5 MG/3 ML NEB SOL NEB PRN (13:00)
--- NOTE | 2022-12-10 14:05 | RAD REPORT ---
EXAM DESCRIPTION: RUCHIEla Single View12/10/2022 1:57 pm CLINICAL HISTORY: Thoracentesis IMPRESSION: A right pneumothorax is not seen status post thoracentesis
[2022-12-10 15:17] LABS: Appearance CLEAR (CLEAR); Body Fluid Source PERITONEAL; Body Fluid WBC 435 /mm^3; Color of fluid Yellow (COLORLESS)
[2022-12-10] MEDS: MELATONIN 5 MG TABLET PO PRN (20:01)
[2022-12-11 02:13] LABS: Hematocrit 34.2 % (39.6-49.0); MCV 77.2 fL (80-100); MPV 7.4 fL (7.6-11.3); RBC Red Blood Cell Count 4.43 M/uL (4.33-5.43)
[2022-12-11 02:20] LABS: Magnesium 1.9 mg/dL (1.6-2.4)
[2022-12-11 02:22] LABS: Potassium 2.9 mmol/L (3.5-5.1)
[2022-12-11] MEDS ORDERED: NA CHLORIDE 0.9% 500 ML ONE (02:48)
[2022-12-11] MEDS: KCL 20 MEQ/100 mL IVPB 20 MEQ/100 ML BAG IV SCH ×3 (02:48→10:08)
[2022-12-11] MEDS: PHENOL 1.4% ORAL SPRAY 180ML MM PRN ×3 (03:56→17:57)
--- NOTE | 2022-12-11 06:54 | RAD REPORT ---
EXAM DESCRIPTION: RAD - Chest Single View - 12/11/2022 6:18 am CLINICAL HISTORY: S/p thoracentesisshortness of breath COMPARISON: Portable 12/10/2022, portable 12/09/2022 TECHNIQUE: AP portable chest image was obtained 12/11/2022 6:18 am . FINDINGS: Right-sided pleural effusion is present similar in volume to the postprocedure examination of 12/10/2022. No right-sided pneumothorax identifiable. Lung field is clear on the left. No left-sided pleural effusion. Cardiomediastinal silhouette is stable. IMPRESSION: Right-sided pleural effusion is present similar to the postprocedure exam of 12/10/2022. No pneumothorax identifiable.
[2022-12-11] MEDS: PANTOPRAZOLE 40 MG INJ IVP SCH (07:46)
[2022-12-11] MEDS: FUROSEMIDE 20 MG/ 2ML VIAL IV SCH (07:46)
[2022-12-11] MEDS: CEFEPIME 1 GM in NA CHLORIDE 0.9% 100 ML IV SCH (09:00)
[2022-12-11] MEDS: GLUCERNA 1.5 CAL 1,000 ML BOT FT SCH ×4 (09:00→20:17)
--- NOTE | 2022-12-11 11:51 | P.PN ---
Subjective Date of Service: 12/11/22 Chief Complaint: Status post thoracentesis doing well Subjective: Improving (Improving no complaints) Review of Systems is unable to be obtained Physical Examination - Vital Signs Temperature: 97.5 F Blood Pressure: 146/65 Pulse: 88 Respirations: 19 Pulse Ox (%): 97 - Physical Exam General: Alert, Cooperative Respiratory: Clear to auscultation bilaterally, Diminished Cardiovascular: No edema, Regular rate/rhythm, Normal S1 S2 Assessment And Plan - Current Problems (Diagnosis) (1) Pleural effusion Current Visit: Yes Status: Acute Plan: Patient is s/p thoracentesis history is are pending CBC DIF on the pleural fluid is predominantly lymphocytes doubt infection no organisms isolated no fever either procalcitonin is negative can DC antibiotics plan for discharge back to the custodial no malignant cells identified on pleural fluid
--- NOTE | 2022-12-11 14:48 | P.PN ---
Subjective Date of Service: 12/11/22 Chief Complaint: Status post thoracentesis doing well No major changes from yesterday. He is not hypoxic. No recorded fever. He is tolerating PEG tube feeding. Physical Examination - Vital Signs Temperature: 97.8 F Blood Pressure: 133/60 Pulse: 96 Respirations: 19 Pulse Ox (%): 97 Assessment And Plan - Plan Physical exam GEN: Alert, oriented, NAD. Neck: Supple, no elevated JVD. CV: Regular rate and rhythm, no edema Pulm: Mild bibasilar rales. ABD: Soft, nontender, nondistended, PEG in place Neuro: normal affect, lower extremity weakness Problem List Severe sepsis secondary to bilateral pneumonia-concern for aspiration Dysphagiahistory of throat cancer Diabetes mellitus type 2, non-insulin dependent Hypertension Hyperlipidemia Hypothyroidism GERD CAD BPH hypocalcemia, hypomagnesemia, hypokalemia Severe sepsis secondary to bilateral pneumonia/right pleural effusion Possible aspiration pneumonia Sepsis resolved Continue vancomycin. Aspiration pneumonia suspect Pulmonary is following. Status postthoracentesis and 1.6 L of pleural fluid drained. Pleural fluid cytology-no malignant cells. Pleural fluid cell count suggest pleocytosis. Biochemistry is still pending. Repeat chest x-ray suggests recollection of the right pleural effusion. Trial of Lasix for pleural effusion. Dysphagiahistory of throat cancer. continue PEG tube / tube feeds. Nothing by mouth. Diabetes mellitus type 2 sliding scale, long acting as appropriate Hypertension Hyperlipidemia Hypothyroidism GERD CAD BPH continue home meds via PEG VTE: Lovenox Code: Full Dispo: back to snf.
[2022-12-11 16:00] LABS: Potassium 3.9 mmol/L (3.5-5.1)
[2022-12-11] MEDS: FUROSEMIDE 40 MG/4 ML VIAL IV SCH (17:08)
[2022-12-11] MEDS: MELATONIN 5 MG TABLET PO PRN (20:17)
[2022-12-12 04:29] LABS: Potassium 3.4 mmol/L (3.5-5.1)
[2022-12-12] MEDS ORDERED: POTASSIUM 25 MEQ EFFERV TAB PO ONE (09:00)
[2022-12-12] MEDS: PANTOPRAZOLE 40 MG INJ IVP SCH (09:13)
[2022-12-12] MEDS: FUROSEMIDE 40 MG/4 ML VIAL IV SCH ×2 (09:13→17:15)
[2022-12-12] MEDS: GLUCERNA 1.5 CAL 1,000 ML BOT FT SCH ×4 (09:14→20:47)
[2022-12-12] MEDS: PHENOL 1.4% ORAL SPRAY 180ML MM PRN (09:46)
--- NOTE | 2022-12-12 12:23 | P.PN ---
Subjective Date of Service: 12/12/22 Chief Complaint: Status post thoracentesis doing well Subjective: Improving (Patient is doing well no new complaints) Review of Systems General: Weakness Respiratory: Shortness of Breath Physical Examination - Vital Signs Temperature: 97.3 F Blood Pressure: 135/65 Pulse: 91 Respirations: 14 Pulse Ox (%): 97 - Physical Exam General: Alert, Oriented x3 Respiratory: Clear to auscultation bilaterally, Diminished (Right side) Assessment And Plan - Current Problems (Diagnosis) (1) Pleural effusion Current Visit: Yes Status: Acute Plan: Patient admitted with a pleural effusion s/p thoracentesis doing well there is no evidence of infection in the pleural fluid for malignant cells vital signs oxygenation stable discharge back to the intermediate
--- NOTE | 2022-12-12 15:55 | P.DS ---
Admission Date: 12/08/22 Discharge Date: 12/12/22 Disposition: TRANSFER TO CORRECTION Discharge Condition: FAIR Reason for Admission: Status post thoracentesis doing well Brief History of Present Illness: 82-year-old male with history of kgm-buqwibk-cksabfndn diabetes, hypertension, hyperlipidemia, hypothyroidism, GERD, CAD, BPH, dysphagia status post PEG tube insertion and recent hospitalization for sepsis, pneumonia who was discharged on 12/07/2022 back to [facility] presents to the emergency department for dyspnea, choking episode. At the [facility] he reportedly coughed up some thick sputum and then began to choke on it, nursing staff grew concerned and sent him to the emergency department for evaluation. He was evaluated here in the emergency department his labs were significant for leukocytosis with also count 13, was 12.5 at discharge, lactic acid 3.6, BNP 6396. CT chest was obtained which revealed unchanged large right pleural effusion, slightly increased patchy pulmonary opacities on the left which could represent pulmonary edema versus pneumonia. Patient was tolerating room air. He was admitted for further management. Hospital Course: Diagnosis Severe sepsis secondary to bilateral pneumonia-concern for aspiration Dysphagiahistory of throat cancer Diabetes mellitus type 2, non-insulin dependent Hypertension Hyperlipidemia Hypothyroidism GERD CAD BPH hypocalcemia, hypomagnesemia, hypokalemia Patient admitted to the medical floor and the following problems addressed: Severe sepsis secondary to bilateral pneumonia/right pleural effusion Possible aspiration pneumonia. Sepsis resolved Patient treated with aggressive antibiotics-IV cefepime and vancomycin. Aspiration pneumonia suspected. Seen by pulmonary Status postthoracentesis and 1.6 L of pleural fluid drained. Pleural fluid cytology-no malignant cells. Pleural fluid cell count suggest pleocytosis but with lymphocytic predominance. Bacterial pneumonia less likely. Antibiotics discontinued by pulmonary. Repeat chest x-ray within 24 hours after thoracentesis showed recollection of the right pleural effusion. Patient treated with IV Lasix. Lasix transition to oral 40 mg twice daily for 1 week followed by 40 mg daily. Dysphagiahistory of throat cancer. He tolerated PEG tube feeding. Nothing given by mouth. Hypertension Hyperlipidemia Hypothyroidism GERD CAD BPH continued home meds via PEG. Patient is currently stable at baseline. Vital Signs/Physical Exam: Temp Pulse Resp BP Pulse Ox 97.3 F 91 H 14 135/65 97 12/12/22 12:23 12/12/22 12:23 12/12/22 12:23 12/12/22 12:23 12/12/22 12:23 General: Alert, In no apparent distress HEENT: Mucous membr. moist/pink Neck: JVD not distended Respiratory: Clear to auscultation bilaterally, Normal air movement Cardiovascular: No edema, Regular rate/rhythm Gastrointestinal: Soft and benign, Non-distended, No tenderness Musculoskeletal: No swelling Integumentary: No cyanosis Laboratory Data at Discharge: WBC 9.50 K/uL (4.3-10.9) 12/11/22 01:45 Hgb 11.3 g/dL (13.6-17.9) L 12/11/22 01:45 Hct 34.2 % (39.6-49.0) L 12/11/22 01:45 Plt Count 316 K/uL (152-406) 12/11/22 01:45 Sodium 140 mmol/L (136-145) 12/12/22 03:45 Potassium 3.4 mmol/L (3.5-5.1) L 12/12/22 03:45 BUN 14 mg/dL (7-18) 12/12/22 03:45 Creatinine 0.45 mg/dL (0.70-1.30) L 12/12/22 03:45 Glucose 212 mg/dL (74-106) H 12/12/22 03:45 Magnesium 1.9 mg/dL (1.6-2.4) 12/11/22 01:45 Cholesterol Cancelled 12/10/22 12:23 Home Medications: Atorvastatin Calcium [Lipitor*] 20 mg PO BEDTIME 12/04/22 Clopidogrel Bisulfate [Plavix*] 75 mg PO DAILY 12/04/22 Metformin HCl [Glucophage*] 1,000 mg PO BIDWM 12/04/22 Mirtazapine [Remeron*] 15 mg PO BEDTIME 12/04/22 Sertraline [Zoloft*] 50 mg PO DAILY 12/04/22 Arformoterol Tartrate [Brovana] 15 mcg IH BID 30 Days #120 ml 12/06/22 Glucerna 1.5 Raoul 237 ml FT QID bot 12/07/22 Pantoprazole Granules [Protonix Granules*] 40 mg FT DAILY 30 Days #30 packet 12/07/22 Furosemide [Lasix] 40 mg PO BIDL #30 tab 12/12/22 New Medications: Furosemide [Lasix] 40 mg PO BIDL #30 tab Diet: Tube feed Activity: Fall precautions Followup: Markus Majano MD [Primary Care Provider] - Time spent managing pt's care (in minutes): 35
--- NOTE | 2022-12-12 16:14 | RAD REPORT ---
EXAM DESCRIPTION: RAD - Chest Single View - 12/12/2022 4:09 pm CLINICAL HISTORY: FOLLOW UP RIGHT PLEURAL EFFUSION Chest pain. COMPARISON: Chest Single View dated 12/11/2022; Chest Single View dated 12/10/2022; Chest Single View da bon 12/09/2022; Chest Single View dated 12/07/2022 FINDINGS: Portable technique limits examination quality. Right pleural effusion again noted, appearing essentially unchanged since yesterday's study. 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 The heart is normal in size. Sternotomy wires.
[2022-12-12] MEDS: MELATONIN 5 MG TABLET PO PRN (20:47)
[2022-12-13] MEDS: FUROSEMIDE 40 MG/4 ML VIAL IV SCH (07:51)
[2022-12-13] MEDS: PANTOPRAZOLE 40 MG INJ IVP SCH (07:52)
[2022-12-13] MEDS: GLUCERNA 1.5 CAL 1,000 ML BOT FT SCH (07:52)
[2022-12-13 08:28] VITALS: BP 120/66; TEMP 97.3
[2022-12-13 09:52] VITALS: O2SAT 100
[2022-12-14 05:56] LABS: TOTAL PROTEIN, PLEURAL FLUID 4.2 g/dL
--- NOTE | 2022-12-18 17:45 | EKG ---
Test Date: 2022-12-07 Test Time: 22:13:18 Food Mixer Assembler: FEDE MEASUREMENT RESULTS: Intervals: Rate: 92 AR: 120 QRSD: 64 QT: 340 QTc: 420 Kendrick: P: 42 AR: 120 QRS: 40 T: 49 INTERPRETIVE STATEMENTS: Normal sinus rhythm Normal ECG Compared to ECG 12/03/2022 16:01:11 No significant changes Electronically Signed On 12-18-22 17:26:32 INTERACTIVE WEB DEVELOPER by Keith Harvey
== END 2022-12-13 11:15 | DRG 871 ==
LOC: ER 21:47 → ERHOLD 12-08 00:44 → 4TH 12-08 01:12
PROVIDERS: ADMIT Hospitalist; ATTEND Internal Medicine
PROC: 0W993ZX Drainage of Right Pleural Cavity, Percutaneous Approach, Diagnostic (ICD-10-PCS; principal; 2022-12-10)
DX: A41.9 Sepsis, unspecified organism (principal); J69.0 Pneumonitis due to inhalation of food and vomit; J90 Pleural effusion, not elsewhere classified; R65.20 Severe sepsis without septic shock; E11.9 Type 2 diabetes mellitus without complications; I10 Essential (primary) hypertension; E78.5 Hyperlipidemia, unspecified; K21.9 Gastro-esophageal reflux disease without esophagitis; E83.42 Hypomagnesemia; E87.6 Hypokalemia; E03.9 Hypothyroidism, unspecified; N40.0 Benign prostatic hyperplasia without lower urinary tract symptoms; E83.51 Hypocalcemia; I25.10 Atherosclerotic heart disease of native coronary artery without angina pectoris; I25.2 Old myocardial infarction; R13.10 Dysphagia, unspecified; Z88.1 Allergy status to other antibiotic agents; Z88.8 Allergy status to other drugs, medicaments and biological substances; Z85.118 Personal history of other malignant neoplasm of bronchus and lung; Z90.49 Acquired absence of other specified parts of digestive tract; Z79.02 Long term (current) use of antithrombotics/antiplatelets; Z79.84 Long term (current) use of oral hypoglycemic drugs; Z79.52 Long term (current) use of systemic steroids; Z79.899 Other long term (current) drug therapy; Z20.822 Contact with and (suspected) exposure to COVID-19
CPT/HCPCS: 32555; 36415; 71045; 71046; 71250; 80048; 80202; 81015; 82945; 82947; 83605; 83615; 83735; 83880; 84145; 84157; 84311; 84484; 85025; 85027; 87015; 87040; 87070; 87102; 87116; 87206; 87811; 88108; 88305; 89050; 93005; 94640; 96361; 96365; 96367; 96375; 99285; C9113; J0692; J1650; J1940; J3370; J3480; J7040; J7050; J7613; J7614; J7644; U0003

== ENCOUNTER 2022-12-17 00:48 | Emergency (ER) | payer OTHER ==
--- OUTSIDE RECORDS SUMMARY | 2022-12-17 00:51 | XMS REPORT | Continuity of Care Document ---
:1940 Author Organization [facility] t Address [address] [place] [address] Care Team Providers Name Role Phone Asked, No Pcp Primary Care Physician Unavailable Mak Luna Attending Clinician Gilbert Murillo Attending Clinician Gilbert Murillo Admitting Clinician Problems Condition Condition Condition Status Onset Resolution Last Treating Co mments Source Name Details Category Date Date Treatment Clinician Date [id number] Bilateral Problem Com mon hand [facility] numbness - [facility] [id number] Primary Problem Commo n osteoarthr [id number] Dupuytren' Problem C ommon [id number] s [facility] contractur - [facility] e of both [facility] Dysphagia, Dysphagia Problem 2018-08-27 Memoria unspecifie , 04:01:04 l d unspecifie Serafin hopkins 08/27/2018 [facility] Allergies, Adverse Reactions, Alerts Allergy Allergy Status Severity Reaction(s) Onset Inactive Treating Comm ents Source Name Type Date Date Clinician ketamine ketamine Active Unknown Commo n [facility] Sulfona Sulfona Active Unknown Commo n mide mide Spirit (substan (substan - [facility] ce) ce) [facility] Social History Social Habit Start Date Stop Date Quantity Comments Source History of Tobacco [facility] Use [facility] Sex Assigned At [birth year] [facility] 00:00:00 00:00:00 Smoking Status Start Date Stop Date Source Tobacco smoking consumption [facility] unknown Never Smoker [facility] Medications Ordered Filled Start Stop Current Ordering [...] HCl HCl HCl Ipratropium Ipratropium No Ipratropiu [place] [facility] Levothyroxi Levothyroxi No Levothyrox ne Sodium ne [...] HCl HCl HCl Ipratropium Ipratropium No Ipratropiu [place] [facility] [place] Levothyroxi Levothyroxi No Levothyrox ne Sodium ne [...] HCl HCl HCl Ipratropium Ipratropium No Ipratropiu [place] [facility] [place] Levothyroxi Levothyroxi No Levothyrox ne Sodium ne [...] Comments Source height 2022-08-08 10:30:00 69 [in_i] [facility] weight 2022-08-08 10:30:00 160 [lb_av] [facility] temperature 2022-08-08 10:30:00 98.1 [degF] [facility] bmi 2022-08-08 10:30:00 23.63 kg/m2 [facility] blood pressure 2022-08-08 10:30:00 130 mm[Hg] [facility] - systolic [facility] blood pressure 2022-08-08 10:30:00 78 mm[Hg] [facility] - diastolic [facility] Procedures This patient has no known procedures. Plan of Care Planned Activity Planned Date Details Comments Source Future Scheduled 2022-12-07 INFLUENZA VACCINE [facility] 14:54:24 [code = INFLUENZA VACCINE] Future Scheduled 2022-12-07 COVID-19 VACCINE (#1) [facility] Test 14:54:24 [code = COVID-19 VACCINE (#1)] Future Scheduled 2022-12-07 SHINGLES VACCINES (1 Met [facility] Test 14:54:24 of 2) [code = SHINGLES VACCINES (1 of 2)] Future Scheduled 2022-12-07 65+ PNEUMOCOCCAL [facility] Test 14:54:24 VACCINE (1 - PCV) [code = 65+ PNEUMOCOCCAL VACCINE (1 - PCV)] Future Scheduled 2022-12-07 INFLUENZA VACCINE Method [facility] Hospital Test 14:54:24 [code = INFLUENZA VACCINE] Future Scheduled 2022-12-07 COVID-19 VACCINE (#1) [facility] Hospital Test 14:54:24 [code = COVID-19 VACCINE (#1)] Future Scheduled 2022-12-07 SHINGLES VACCINES (1 Met [facility] Test 14:54:24 of 2) [code = SHINGLES VACCINES (1 of 2)] Future Scheduled 2022-12-07 65+ [facility] 14:54:24 VACCINE (1 - PCV) [code = 65+ PNEUMOCOCCAL VACCINE (1 - PCV)] Future Scheduled 2022-10-17 COVID-19 VACCINE (#1) [facility] Hospital Test 19:39:25 [code = COVID-19 VACCINE (#1)] Future Scheduled 2022-10-17 SHINGLES VACCINES (1 [facility] Test 19:39:25 of 2) [code = SHINGLES VACCINES (1 of 2)] Future Scheduled 2022-10-17 65+ [facility]AL [facility] 19:39:25 VACCINE (1 - PCV) [code = 65+ PNEUMOCOCCAL VACCINE (1 - PCV)] Future Scheduled 2022-10-17 INFLUENZA VACCINE Method [facility] Test 19:39:25 [code = INFLUENZA VACCINE] Future Scheduled 2022-08-08 SHINGLES VACCINES (1 [facility] Test 13:33:05 of 2) [code = SHINGLES VACCINES (1 of 2)] Future Scheduled 2022-08-08 65+ PNEUMOCOCCAL [facility] Test 13:33:05 VACCINE (1 - PCV) [code = 65+ PNEUMOCOCCAL VACCINE (1 - PCV)] Future Scheduled 2022-08-08 INFLUENZA VACCINE Method [facility] Test 13:33:05 [code = INFLUENZA VACCINE] Future Scheduled 2022-08-08 HEPATITIS B VACCINES Met [facility] Test 13:33:05 (1 of 3 - 3-dose series) [code = HEPATITIS B VACCINES (1 of 3 - 3-dose series)] Future Scheduled 2022-08-08 COVID-19 VACCINE (#1) [facility] Hospital Test 13:33:05 [code = COVID-19 VACCINE (#1)] Future Scheduled 2022-08-08 SHINGLES VACCINES (1 [facility] Test 13:33:05 of 2) [code = SHINGLES VACCINES (1 of 2)] Future Scheduled 2022-08-08 65+ PNEUMOCOCCAL [facility] Test 13:33:05 VACCINE (1 - PCV) [code = 65+ PNEUMOCOCCAL VACCINE (1 - PCV)] Future Scheduled 2022-08-08 INFLUENZA VACCINE Method [facility] Hospital Test 13:33:05 [code = INFLUENZA VACCINE] Future Scheduled 2022-08-08 HEPATITIS B VACCINES [facility] Test 13:33:05 (1 of 3 - 3-dose series) [code = HEPATITIS B VACCINES (1 of 3 - 3-dose series)] Future Scheduled 2022-08-08 COVID-19 VACCINE (#1) [facility] Test 13:33:05 [code = COVID-19 VACCINE (#1)] Encounters Start End Encounter Admission Attending Care Care Encounter Source Date/Time Date/Time Type Type Clinicians Facility Department ID 2022-08-08 Outpatient [facility] [id number] Common 10:35:03 [id number] [facility] 2022-12-11 2022-12-11 Ambulatory [facility] MNA [id number] Memoria 14:15:00 14:15:00 Pre-Reg Neurology 02 yeny Rodriges 2022-12-11 2022-12-11 Outpatient [facility] MHIE [id number] Memoria 08:15:00 08:15:00 02 yeny Rodriges 2022-12-11 2022-12-11 Outpatient [facility] MHIE [id number] Memoria 08:15:00 08:15:00 02 yeny Rodriges 2022-12-11 2022-12-11 [id number] 08:15:00 08:15:00 Mak Obregon 2022-11-01 2022-11-01 Ambulatory [facility]IE MNA [id number] Memoria 14:15:00 14:15:00 Pre-Reg Neurology 01 yeny Rodriges 2022-11-01 2022-11-01 Ambulatory [facility] MNA [id number] Memoria 14:15:00 14:15:00 Pre-Reg Neurology 01 l Tam Antelmo 2022-11-01 2022-11-01 [facility] [id number] 08:15:00 08:15:00 Mak 01 Sabas 2022-09-24 2022-09-24 Ambulatory [facility]IE MNA [id number] Memoria 16:30:00 16:30:00 Pre-Reg Neurology 00 l Tam Antelmo 2022-09-24 2022-09-24 Ambulatory [facility] MNA [id number] Memoria 16:30:00 16:30:00 Pre-Reg Neurology 00 l Tam Rodriges 2022-09-24 2022-09-24 Outpatient MHIE MHIE [id number] Memoria 10:30:00 10:30:00 yeny Rodriges 2022-09-24 2022-09-24 Outpatient MHIE MHIE [id number] Memoria 10:30:00 10:30:00 yeny Rodriges 2022-09-24 2022-09-24 [id number] 10:30:00 10:30:00 Mak 00 Sabas 2022-08-13 2022-08-13 (TEL) STLMLC STLMLC [id number] Co mmon 00:00:00 00:00:00 [facility] 2022-08-13 2022-08-13 (TEL) STLMLC STLMLC [id number] Co mmon 00:00:00 00:00:00 [facility] 2022-08-08 2022-08-08 OFFICE STLMLC STLMLC [id number] Co mmon 00:00:00 00:00:00 VISIT NEW Spir it PT LEVEL 3 - [facility] 2018-08-25 2018-08-26 Outpatient nullFlavo [facility] [id number] Memoria 12:48:25 04:59:[facility] 2018-08-25 2018-08-26 Outpatient [facility]Flavo [facility] [id number] Memoria 12:48:25 04:59:59 [facility] 2018-08-25 2018-08-25 Outpatient nullFlavo [facility] [id number] Ezekiel 07:48:25 23:59:59 brisa Rodriges 2018-08-25 2018-08-25 Outpatient Rajeshraza, [id number] 07:48:25 23:59:59 Gilbert Jennings 8 Results This patient has no known results.
--- NOTE | 2022-12-17 02:25 | ER ---
Nurse's Notes [facility] Name: Perry Osorio Age: 82 yrs Sex: Male : 1940 Arrival Date: 12/17/2022 Time: 00:55 Bed 2 Private MD: Diagnosis: Contusion of right wrist;Fall on same level, unspecified Presentation: 12/17 01:00 Chief complaint: EMS states: Unwitnessed fall yesterday at daylight, patient c/o pain R ke1 shoulder and R wrist this morning. Coronavirus screen: Vaccine status:. Ebola Screen: No symptoms or risks identified at this time. Initial Sepsis Screen: Does the patient meet any 2 criteria? No. Patient's initial sepsis screen is negative. Does the patient have a suspected source of infection? No. Patient's initial sepsis screen is negative. Risk Assessment: Do you want to hurt yourself or someone else? Patient reports no desire to harm self or others. Onset of symptoms is unknown. 01:00 Method Of Arrival: EMS ke1 01:00 Acuity: MARCELO 4 ke1 01:19 Care prior to arrival: None. Mechanism of Injury: Fall unwitnessed. Trauma event ke1 details: Injury occurred in the [facility], Injury occurred: group home Injury occurred: December 16, 2022. Trauma Activation: Physician: ED Physician; Name: luanne; Notified At: 01:00; Arrived At: Physician: General Surgeon; Name: ; Notified At: 01:00; Arrived At: Physician: Radiology; Name: ; Notified At: 01:00; Arrived At: Physician: Respiratory; Name: ; Notified At: 01:00; Arrived At: Physician: Lab; Name: ; Notified At: 01:00; Arrived At: Historical: - Allergies: :17 KETAMINE; ke1 01:17 Sulfa (Sulfonamide Antibiotics); ke1 - PMHx: 01:17 Diabetes - NIDDM; High Cholesterol; Myocardial infarction; Hypertension; ke1 - Immunization history: Last tetanus immunization: unknown. - Social history:: Smoking status: unknown. Screenin:17 [facility] ED Fall Risk Assessment (Adult) History of falling in the last 3 months, ke1 including since admission Yes- physiologic fall (2 pts). Abuse screen: Denies threats or abuse. Nutritional screening: Difficulty chewing/swallowing?. Tuberculosis screening: No symptoms or risk factors identified. Primary Survey: 01:00 NO uncontrolled hemorrhage observed. A: The client is alert. Airway: patent. ke1 Breathing/Chest: Respiratory effort: spontaneous, Breath sounds: clear. Circulation: Pulses: palpable right radial artery. Disability Pupils are equal, round, reactive to light and accommodation. Reassessment Breathing:. 01:00 Exposure/Environment: All clothing and personal items were removed. Forensic evidence ke1 collection is not deemed to be indicated at this time. Items placed in patient belonging bag. There is no evidence of uncontrolled external bleeding. No obvious injuries are noted at this time. A warming method has been applied: A warm blanket has been provided to the patient. 01:15 Reassessment Alertness and Airway: Awake and alert. The airway is patent. Circulation: ke1 Heart rhythm Sinus rhythm Disability: Pupils Pupils are equal, round, reactive to light and accomodation. Secondary Survey: 01:15 HEENT: Head No injury/deformity Face No injury/deformity Eyes: No injury or deformity ke1 noted. Ears: clear bilaterally. Nose: clear to bilateral nares. Gastrointestinal: Abdomen is soft, PEG tube. : No deficits noted. Musculoskeletal: Capillary refill < 3 seconds. Injury Description: bruise R wrist. Assessment: 01:00 Respiratory: Respiratory effort is even, unlabored, Respiratory pattern is regular, ke1 symmetrical. 01:11 General: Appears in no apparent distress. Behavior is flat. Pain: Complains of pain in ke1 R shoulder R wrist. Neuro: Level of Consciousness is awake, lethargic, Oriented to person, place, situation. 02:34 Reassessment: report given to Robina Herrera LVN, does not have an ETA fo hop picker. ke1 04:28 Reassessment: Nusing home called, unable to speak to nurse robina, message left ke1 regarding ETA , she will call me back. Vital Signs: 01:00 BP 123 / 57; Pulse 100; Resp 17; Temp 97.7; Pulse Ox 90% on R/A; Weight 68.04 kg; ke1 Height 5 ft. 3 in. (160.02 cm); 01:21 Pulse Ox 97% on 2 lpm NC; ke1 02:34 BP 132 / 85; Pulse 97; Resp 17; Temp 97.6(O); Pulse Ox 97% on 2 lpm NC; ke1 01:00 Body Mass Index 26.57 (68.04 kg, 160.02 cm) ke1 Marsha Coma Score: 01:18 Eye Response: spontaneous(4). Verbal Response: oriented(5). Motor Response: obeys ke1 commands(6). Total: 15. Trauma Score (Adult): 01:18 Eye Response: spontaneous(1); Verbal Response: oriented(1); Motor Response: obeys ke1 commands(2); Systolic BP: > 89 mm Hg(4); Respiratory Rate: 10 to 29 per min(4); Marsha Score: 15; Trauma Score: 12 ED Course: 00:55 Patient arrived in ED. mw2 00:55 Mariano Adler RN is Primary Nurse. ke1 01:00 Thermoregulation: warm blanket given to patient. ke1 01:01 Ananth Martinez DO is Attending Physician. ms3 01:10 Patient has correct armband on for positive identification. ke1 01:10 No provider procedures requiring assistance completed. Patient did not have IV access ke1 during this emergency room visit. 01:11 Triage completed. ke1 01:19 Arm band placed on right wrist. ke1 01:21 Oxygen administration via nasal cannula \T\ 2L/min. ke1 Administered Medications: No medications were administered Medication: 02:36 VIS not applicable for this client. ke1 Intake: 02:36 PO: 0ml; Total: 0ml. ke1 Output: 02:36 Urine: 0ml; Total: 0ml. ke1 Outcome: 02:24 Discharge ordered by . ms3 02:35 Discharged to group home. Report called to robina Herrera LVN ke1 02:35 Condition: good 02:35 Discharge instructions given to group home. 05:23 Patient left the ED. ke1 Signatures: Oly Fung mw2 Ananth Martinez DO DO ms3 Mariano Adler RN RN ke1 Corrections: (The following items were deleted from the chart) 01:15 01:00 Reassessment Alertness and Airway: ke1 ke1
--- NOTE | 2022-12-17 02:25 | EDPHYS ---
Physician Documentation [facility] Name: Perry Osorio Age: 82 yrs Sex: Male : 1940 Arrival Date: 12/17/2022 Time: 00:55 Bed 2 Private MD: ED Physician Ananth Martinez HPI: 12/17 02:24 This 82 yrs old Male presents to ER via EMS with complaints of Fall. ms3 02:24 82-year-old female with past medical history of diabetes, hyperlipidemia, myocardial ms3 infarction, hypertension presents after falling during dayshift. EMS states patient is complaining of left wrist pain. Patient is on blood thinners. Historical: - Allergies: 01:17 KETAMINE; ke1 01:17 Sulfa (Sulfonamide Antibiotics); ke1 - PMHx: 01:17 Diabetes - NIDDM; High Cholesterol; Myocardial infarction; Hypertension; ke1 - Immunization history: Last tetanus immunization: unknown. - Social history:: Smoking status: unknown. ROS: 02:24 Constitutional: Negative for fever, and chills. Neck: Negative for injury, pain, and ms3 swelling, Cardiovascular: Negative for chest pain, and palpitations. Respiratory: Negative for shortness of breath, cough, wheezing, and pleuritic chest pain, Abdomen/GI: Negative for abdominal pain, nausea, vomiting, diarrhea, and constipation. 02:24 MS/extremity: Positive for Left wrist pain. Exam: 02:24 Constitutional: This is a well developed, well nourished patient who is awake, alert, ms3 and in no acute distress. Head/Face: Normocephalic, atraumatic. Neck: Trachea midline, no cervical lymphadenopathy. Supple, full range of motion without nuchal rigidity, or vertebral point tenderness. No Meningismus. Chest/axilla: Normal chest wall appearance and motion. Nontender with no deformity. Cardiovascular: Regular rate and rhythm with a normal S1 and S2. No gallops, murmurs, or rubs. Normal PMI, no JVD. No pulse deficits. Respiratory: Lungs have equal breath sounds bilaterally, clear to auscultation and percussion. No rales, rhonchi or wheezes noted. No increased work of breathing, no retractions or nasal flaring. Abdomen/GI: Soft, non-tender, with normal bowel sounds. No distension or tympany. No guarding or rebound. No evidence of tenderness throughout. 02:24 Musculoskeletal/extremity: Extremities: noted in the Left wrist: pain. Vital Signs: 01:00 BP 123 / 57; Pulse 100; Resp 17; Temp 97.7; Pulse Ox 90% on R/A; Weight 68.04 kg; ke1 Height 5 ft. 3 in. (160.02 cm); 01:21 Pulse Ox 97% on 2 lpm NC; ke1 02:34 BP 132 / 85; Pulse 97; Resp 17; Temp 97.6(O); Pulse Ox 97% on 2 lpm NC; ke1 01:00 Body Mass Index 26.57 (68.04 kg, 160.02 cm) ke1 Marsha Coma Score: 01:18 Eye Response: spontaneous(4). Verbal Response: oriented(5). Motor Response: obeys ke1 commands(6). Total: 15. Trauma Score (Adult): 01:18 Eye Response: spontaneous(1); Verbal Response: oriented(1); Motor Response: obeys ke1 commands(2); Systolic BP: > 89 mm Hg(4); Respiratory Rate: 10 to 29 per min(4); Marsha Score: 15; Trauma Score: 12 MDM: 01:01 Patient medically screened. ms3 02:24 Differential diagnosis: closed head injury, contusion, fracture. Data reviewed: vital ms3 signs, nurses notes, lab test result(s), radiologic studies, and as a result, I will discharge patient. Historians other than the Patient: EMS: . 12/17 01:01 Order name: CT Head C Spine ms3 12/17 01:01 Order name: Wrist Right 3 View XRAY ms3 Administered Medications: No medications were administered Disposition Summary: 12/17/22 02:24 Discharge Ordered Location: Home ms3 Condition: Stable ms3 Diagnosis - Contusion of right wrist ms3 - Fall on same level, unspecified ms3 Followup: ms3 - With: Private Physician - When: 2 - 3 days - Reason: Recheck today's complaints Discharge Instructions: - Discharge Summary Sheet ms3 - Contusion, [id number] ms3 Forms: - Medication Reconciliation Form ms3 - Thank You Letter ms3 - Antibiotic Education ms3 - Prescription Opioid Use ms3 Signatures: Dispatcher [employer] EDMS Martinez, Ananth, DO DO ms3 Mariano Adler, RN RN ke1
[2022-12-17 05:38] VITALS: O2SAT 97
[2022-12-17 05:40] VITALS: BP 132/85; TEMP 97.6
--- NOTE | 2022-12-17 15:28 | RAD REPORT ---
EXAM DESCRIPTION: CT Head and Cervical Spine Without Intravenous Contrast CLINICAL HISTORY: The patient is 82 years old and is Male; TRAUMA TECHNIQUE: Axial computed tomography images of the head/brain and cervical spine without intravenous contrast. Sagittal and coronal reformatted images were created and reviewed. This CT exam was pe rformed using one or more of the following dose reduction techniques: automated exposure control, a djustment of the mA and/or kV according to patient size, and/or use of iterative reconstruction techn ique. COMPARISON: CT May 01, 2018 FINDINGS: BRAIN: Evidence of prior bilateral basal ganglia lacunar infarcts present. There is diff use cerebral atrophy present, consistent with this patient's age. There is patchy hypoattenuation o f the deep white matter which is non-specific, but most likely owing to chronic small vessel ischemic change in a patient of this age group. No intracranial hemorrhage, mass effect, midline shift is s een. There are no extra-axial fluid collections. VENTRICLES: Unremarkable. No ventriculomegaly. SKULL: No acute fracture. SINUSES: Unremarkable as visualized. No acute sinusitis. MASTOID AIR CELLS: Unremarkable as visualized. No mastoid effusion. VERTEBRAE: The vertebral body heights and alignment are maintained. No acute fracture. DISCS/SPINAL CANAL/NEURAL FORAMINA: There is multi-level intervertebral disc height loss. There are disc-osteophyte complexes at several levels, with associated mild spinal canal narrowing. There i s also facet hypertrophy and uncovertebral joint osteophytosis, with associated multilevel neural for aminal narrowing. SOFT TISSUES: The soft tissues are normal. VASCULATURE: Atherosclerosis of the vasculature is noted. LUNG APICES: Unremarkable as visualized. PLEURAL SPACE: Partially visualized right pleural effusion is present. IMPRESSION: 1. No acute intracranial findings. 2. 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 Electronically signed by: Terri Dias MD 12/17/2022 1:58 AM ADMINISTRATIVE OFFICE ASSISTANT Due to temporary technical issues with the PACS/Fluency reporting system, reports are being signed by the in house radiologists without review as a courtesy to insure prompt reporting. The interpreting radiologist is fully responsible for the content of the report.
--- NOTE | 2022-12-17 15:29 | RAD REPORT ---
EXAM DESCRIPTION: XR Right Wrist Complete, 3 or More Views CLINICAL HISTORY: The patient is 82 years old and is Male; PAIN TECHNIQUE: Frontal, lateral and oblique views of the right wrist. COMPARISON: No relevant prior studies available. FINDINGS: BONES/JOINTS: The bones are osteopenic. Mild degenerative change is noted. No acute fr acture. No dislocation. SOFT TISSUES: Unremarkable. No radiopaque foreign body. VASCULATURE: Diffuse atherosclerosis of the vasculature is present. IMPRESSION: No acute findings in the right wrist. Electronically signed by: Terri Dias MD 12/17/2022 2:11 AM WILLOW WORKER Due to temporary technical issues with the PACS/Fluency reporting system, reports are being signed by the in house radiologists without review as a courtesy to insure prompt reporting. The interpreting radiologist is fully responsible for the content of the report.
== END 2022-12-17 05:23 | disposition home or self-care (01) ==
LOC: ER 00:48
DX: S60.211A Contusion of right wrist, initial encounter (principal); W18.30XA Fall on same level, unspecified, initial encounter; I10 Essential (primary) hypertension; E11.9 Type 2 diabetes mellitus without complications; Z88.2 Allergy status to sulfonamides; Z88.8 Allergy status to other drugs, medicaments and biological substances
CPT/HCPCS: 70450; 72125